=== PATIENT | female | born 1960 | race Caucasian/White ===

== ENCOUNTER 2019-12-20 19:46 | Emergency (ER) | payer SELFPAY ==
[2019-12-20 21:05] LABS: Absolute Lymphocytes (CBC) 2.1 K/uL (0.7-4.9); Basophils % 0.7 % (0-1.3); Hematocrit 40.5 % (36.0-45.0); Lymphocytes % 16.3 % (15.3-44.8); MPV 8.8 fL (7.6-11.3); RBC Red Blood Cell Count 4.54 M/uL (3.86-4.86)
--- NOTE | 2019-12-20 21:21 | RAD REPORT ---
EXAM DESCRIPTION: CTAbdomen Pelvis W Contrast - 12/20/2019 9:01 pm CLINICAL HISTORY: Abdominal pain. ABD PAIN COMPARISON: No comparisons TECHNIQUE: Biphasic CT imaging of the abdomen and pelvis was performed with 100 ml non-ionic IV cont rast. All CT scans are performed using dose optimization technique as appropriate and may include automated exposure control or mA/KV adjustment according to patient size. FINDINGS: The lung bases are clear. The liver demonstrates mild fatty infiltration. The spleen, pancreas, adrenal glands and kidneys are within normal limits. No bowel obstruction, free air, free fluid or abscess. The appendix is normal. There is moderate inf lammation surrounding the sigmoid colon are multiple diverticula are present compatible with acute di verticulitis. No abscess is seen. No evidence of significant lymphadenopathy. No suspicious bony findings. IMPRESSION: Mild to moderate acute sigmoid diverticulitis without abscess. If not recently performed, a followup colonoscopy would be suggested after appropriate therapy.
[2019-12-20 21:23] LABS: ALT/SGPT 32 U/L (12-78); AST/SGOT 13 U/L (15-37); Albumin 3.7 g/dL (3.4-5.0); Alkaline Phosphatase 73 U/L (45-117); BUN Blood Urea Nitrogen 18 mg/dL (7-18); Bicarbonate 25 mmol/L (21-32); Bilirubin Direct < 0.1 mg/dL (0-0.2); Bilirubin Total 0.3 mg/dL (0.2-1.0); Glucose Level 101 mg/dL (74-106); Lipase 97 U/L (73-393); Potassium 3.5 mmol/L (3.5-5.1); Protein, Total 7.6 g/dL (6.4-8.2); Sodium Level 140 mmol/L (136-145)
[2019-12-20] MEDS ORDERED: MORPHINE 4 MG/ML SYR ONE (21:33)
[2019-12-20] MEDS ORDERED: ONDANSETRON 4 MG/2 ML VIAL ONE (21:33)
[2019-12-20] MEDS ORDERED: NA CHLORIDE 0.9% 1,000 ML ONE (21:33)
[2019-12-20] MEDS ORDERED: HYDROMORPHONE HCL 0.5 MG/0.5 ML INJ ONE (22:53)
[2019-12-20] MEDS ORDERED: CIPROFLOXACIN 400mg IV 400 MG/200 ML BAG IV ONE (22:53)
[2019-12-20] MEDS ORDERED: METRONIDAZOLE 500mg IVPB 500 MG/100 ML BAG IV ONE (22:53)
--- NOTE | 2019-12-20 23:49 | ER ---
Nurse's Notes [facility] Name: Elizabeth Collins Age: 59 yrs Sex: Female : 1960 Arrival Date: 12/20/2019 Time: 19:49 Bed 16 Private MD: Diagnosis: Diverticulitis Presentation: 12/19 20:09 Chief complaint: Chief complaint: Patient states: Severe lower abdominal pain since ca1 yesterday, worse today. Reports nausea and diarrhea. Denies fever. 20:09 Coronavirus screen: Client denies travel out of the [place] in the last 14 days. diarrhea, ca1 nausea, Client presents with at least one sign or symptom that may indicate coronavirus-19. Standard/surgical mask placed on the client. Provider contacted for isolation considerations. The client denies any previous COVID testing. Ebola Screen: Patient negative for fever greater than or equal to 101.5 degrees Fahrenheit, and additional compatible Ebola Virus Disease symptoms Patient denies exposure to infectious person. Patient denies travel to an Ebola-affected area in the 21 days before illness onset. No symptoms or risks identified at this time. Initial Sepsis Screen: Does the patient meet any 2 criteria? No. Patient's initial sepsis screen is negative. Does the patient have a suspected source of infection? No. Patient's initial sepsis screen is negative. Risk Assessment: Do you want to hurt yourself or someone else? Patient reports no desire to harm self or others. Onset of symptoms was December 20, 2019. 20:09 Method Of Arrival: Ambulatory ca1 20:09 Acuity: BARBARA 2 ca1 Historical: - Allergies: 20:12 No Known Allergies; ca1 - Home Meds: 20:12 None [Active]; ca1 - PMHx: 20:12 None; ca1 - PSHx: 20:12 Tubal ligation; ca1 - Immunization history:: Adult Immunizations up to date, Flu vaccine is not up to date. - Social history:: Smoking status: Patient reports the use of cigarette tobacco products, smokes one pack cigarettes per day. Screenin/13 00:31 Abuse screen: Denies threats or abuse. Nutritional screening: No deficits noted. bb3 Tuberculosis screening: No symptoms or risk factors identified. Fall Risk None identified. Assessment: 12/19 21:40 General: Appears in no apparent distress. uncomfortable, well groomed, Behavior is bb3 calm, cooperative, appropriate for age, Smells of Reports Denies fever, fatigue. Pain: Pain currently is 10 out of 10 on a pain scale. Quality of pain is described as aching, sharp, Pain began 1 day ago. GI: No deficits noted. Reports lower abdominal pain, diarrhea, nausea. 22:30 Reassessment: Patient appears in no apparent distress at this time. Patient and/or bb3 family updated on plan of care and expected duration. Pain level reassessed. Patient is alert, oriented x 3, equal unlabored respirations, skin warm/dry/pink. Patient states feeling better. 23:15 Reassessment: Patient appears in no apparent distress at this time. Patient and/or bb3 family updated on plan of care and expected duration. Pain level reassessed. Patient is alert, oriented x 3, equal unlabored respirations, skin warm/dry/pink. Patient states feeling better. Patient states symptoms have improved. 12/20 00:28 Reassessment: Patient appears in no apparent distress at this time. Patient and/or bb3 family updated on plan of care and expected duration. Pain level reassessed. Patient is alert, oriented x 3, equal unlabored respirations, skin warm/dry/pink. Patient states symptoms have improved. 00:32 GI: GI: Abdomen is round non-distended, Abd is soft and non tender X 4 quads. bb3 Vital Signs: 12/19 20:09 BP 205 / 92; Pulse 82; Resp 15 S; Temp 98.4(TE); Pulse Ox 98% on R/A; Weight 86.18 kg ca1 (R); Height 5 ft. 4 in. (162.56 cm) (R); Pain 10/10; 21:39 BP 218 / 81; Pulse 101; Resp 19; Temp 98.5; Pulse Ox 96% ; Pain 10/10; bb3 22:16 Pulse Ox 9% ; bb3 22:30 BP 181 / 95; Pulse 96; Resp 18; Pulse Ox 95% ; bb3 23:10 BP 169 / 76; Pulse 96; Resp 17; Pulse Ox 95% ; Pain 9/10; bb3 23:10 BP 144 / 56; Pulse 96; Resp 17; Pulse Ox 94% ; Pain 4/10; bb3 23:24 BP 169 / 76; Pulse 98; Resp 17; Pulse Ox 95% ; Pain 0/10; bb3 20:09 Body Mass Index 32.61 (86.18 kg, 162.56 cm) ca1 ED Course: 19:49 Patient arrived in ED. am2 20:11 Triage completed. ca1 20:12 Arm band placed on right wrist. ca1 20:19 Lam Brand MD is Attending Physician. mh7 20:51 Inserted saline lock: 20 gauge in left antecubital area, using aseptic technique. Blood dh4 collected. 21:02 CT Abd/Pelvis - IV Contrast Only In Process Unspecified. EDMS 23:47 Zane Graff MD is Referral Physician. mh7 23:48 Geovani Ferrer MD is Referral Physician. mh7 12/20 00:31 Patient has correct armband on for positive identification. Bed in low position. Call bb3 light in reach. Side rails up X 1. 00:31 No provider procedures requiring assistance completed. IV discontinued, intact, bb3 bleeding controlled, No redness/swelling at site. Pressure dressing applied. Administered Medications: 12/19 21:30 Drug: NS 0.9% 1000 ml Route: IV; Rate: 1000 ml; Site: right antecubital; bb3 21:30 Drug: morphine 4 mg Route: IVP; Site: right antecubital; bb3 22:16 Follow up: Pulse Ox 9% ; Response: No adverse reaction; No change in condition; Pain is bb3 unchanged, physician notified 21:30 Drug: Zofran (Ondansetron) 4 mg Route: IVP; Site: right antecubital; bb3 22:16 Follow up: Response: No adverse reaction bb3 22:59 Drug: Dilaudid 0.5 mg Route: IVP; Site: right antecubital; bb3 23:24 Follow up: BP 169 / 76; Pulse 98 bpm; Resp 17 bpm; Pulse Ox 95% ; Pain 0/10 Adult; bb3 Response: No adverse reaction; Marked relief of symptoms; Pain is decreased 12/20 00:30 Follow up: Response: No adverse reaction; Marked relief of symptoms; Pain is decreased bb3 12/19 23:00 Drug: Cipro 400 mg Volume: 200 ml; Route: IVPB; Infused Over: 60 mins; Site: right bb3 antecubital; 23:25 Follow up: Response: No adverse reaction bb3 12/20 00:29 Follow up: IV Status: Completed infusion; IV Intake: 200ml bb3 12/19 23:15 Drug: Flagyl 500 mg Volume: 100 ml; Route: IVPB; Rate: 200 ml/hr; Infused Over: 30 bb3 mins; Site: right antecubital; 12/20 00:29 Follow up: IV Status: Completed infusion; IV Intake: 100ml bb3 00:29 Follow up: Response: No adverse reaction bb3 Intake: 00:29 IV: 100ml; Total: 100ml. bb3 00:29 IV: 200ml; Total: 300ml. bb3 Outcome: 12/19 23:48 Discharge ordered by . mh7 12/20 00:31 Discharged to home ambulatory. bb3 Condition: improved Discharge instructions given to patient, significant other, Instructed on discharge instructions, follow up and referral plans. medication usage, Demonstrated understanding of instructions, follow-up care, medications, Prescriptions given X x5 00:33 Patient left the ED. bb3 Signatures: Dispatcher [employer] EDMS Katie Reis 2 Diane Gibbs RN RN ca1 Aniya Stockton bb3 Nikolas Rodriguez 4 Lam Brand MD MD 7 Corrections: (The following items were deleted from the chart) 12/19 20:11 20:09 Chief complaint: ca1 ca1 20:14 20:09 Acuity: BARBARA 3 ca1 ca1
--- NOTE | 2019-12-20 23:49 | EDPHYS ---
Physician Documentation [facility] Name: Elizabeth Collins Age: 59 yrs Sex: Female : 1960 Arrival Date: 12/20/2019 Time: 19:49 Bed 16 Private MD: ED Physician Lam Brand HPI: 12/19 20:31 This 59 yrs old Female presents to ER via Ambulatory with complaints of mh7 Abdominal Pain, Diarrhea. 20:31 The patient presents to the emergency department with diarrhea, that is intermittent, mh7 abdominal pain. 20:32 The patient presents with abdominal pain in the lower abdomen. Onset: The mh7 symptoms/episode began/occurred yesterday. The symptoms do not radiate. Associated signs and symptoms: Pertinent positives: diarrhea, dysuria, Pertinent negatives: nausea and vomiting, anorexia, blood in stools, chest pain, constipation, fever, headache, hematuria, nausea, palpitations, shortness of breath, vaginal discharge, vomiting, vomiting blood. The symptoms are described as intermittent, vague, waxing/waning. Modifying factors: The symptoms are alleviated by nothing, the symptoms are aggravated by movement. Severity of pain: At its worst the pain was moderate today, in the emergency department the pain is unchanged. Historical: - Allergies: 20:12 No Known Allergies; ca1 - Home Meds: 20:12 None [Active]; ca1 - PMHx: 20:12 None; ca1 - PSHx: 20:12 Tubal ligation; ca1 - Immunization history:: Adult Immunizations up to date, Flu vaccine is not up to date. - Social history:: Smoking status: Patient reports the use of cigarette tobacco products, smokes one pack cigarettes per day. ROS: 20:32 Constitutional: Negative for fever, chills, and weight loss, Eyes: Negative for injury, mh7 pain, redness, and discharge, ENT: Negative for injury, pain, and discharge, Neck: Negative for injury, pain, and swelling, Cardiovascular: Negative for chest pain, palpitations, and edema, Respiratory: Negative for shortness of breath, cough, wheezing, and pleuritic chest pain, Back: Negative for injury and pain, MS/Extremity: Negative for injury and deformity, Skin: Negative for injury, rash, and discoloration, Neuro: Negative for headache, weakness, numbness, tingling, and seizure, Psych: Negative for depression, anxiety, suicide ideation, homicidal ideation, and hallucinations, Allergy/Immunology: Negative for hives, rash, and allergies, Endocrine: Negative for neck swelling, polydipsia, polyuria, polyphagia, and marked weight changes, Hematologic/Lymphatic: Negative for swollen nodes, abnormal bleeding, and unusual bruising. Exam: 20:32 Head/Face: Normocephalic, atraumatic. Eyes: Pupils equal round and reactive to light, mh7 extra-ocular motions intact. Lids and lashes normal. Conjunctiva and sclera are non-icteric and not injected. Cornea within normal limits. Periorbital areas with no swelling, redness, or edema. Neck: Trachea midline, no thyromegaly or masses palpated, and no cervical lymphadenopathy. Supple, full range of motion without nuchal rigidity, or vertebral point tenderness. No Meningismus. Chest/axilla: Normal chest wall appearance and motion. Nontender with no deformity. No lesions are appreciated. Cardiovascular: Regular rate and rhythm with a normal S1 and S2. No gallops, murmurs, or rubs. Normal PMI, no JVD. No pulse deficits. Respiratory: Lungs have equal breath sounds bilaterally, clear to auscultation and percussion. No rales, rhonchi or wheezes noted. No increased work of breathing, no retractions or nasal flaring. 20:32 Back: No spinal tenderness. No costovertebral tenderness. Full range of motion. Skin: Warm, dry with normal turgor. Normal color with no rashes, no lesions, and no evidence of cellulitis. MS/ Extremity: Pulses equal, no cyanosis. Neurovascular intact. Full, normal range of motion. Neuro: Awake and alert, GCS 15, oriented to person, place, time, and situation. Cranial nerves II-XII grossly intact. Motor strength 5/5 in all extremities. Sensory grossly intact. Cerebellar exam normal. Normal gait. Psych: Awake, alert, with orientation to person, place and time. Behavior, mood, and affect are within normal limits. 20:32 Constitutional: The patient appears in no acute distress, alert, awake, uncomfortable. 20:32 Abdomen/GI: Inspection: abdomen appears normal, Bowel sounds: normal, in all quadrants, Palpation: moderate abdominal tenderness, in the suprapubic area, right lower quadrant and left lower quadrant, no appreciated organomegaly, Rectal exam: the exam is deferred, because of patient request, Indicators: McBurney's point is not tender, Montemayor's sign is negative, Rovsing's sign is negative, Obturator sign is negative, Psoas sign is negative, Liver: no appreciated palpable abnormalities, Hernia: not appreciated. Vital Signs: 20:09 BP 205 / 92; Pulse 82; Resp 15 S; Temp 98.4(TE); Pulse Ox 98% on R/A; Weight 86.18 kg ca1 (R); Height 5 ft. 4 in. (162.56 cm) (R); Pain 10/10; 21:39 BP 218 / 81; Pulse 101; Resp 19; Temp 98.5; Pulse Ox 96% ; Pain 10/10; bb3 22:16 Pulse Ox 9% ; bb3 22:30 BP 181 / 95; Pulse 96; Resp 18; Pulse Ox 95% ; bb3 23:10 BP 169 / 76; Pulse 96; Resp 17; Pulse Ox 95% ; Pain 9/10; bb3 23:10 BP 144 / 56; Pulse 96; Resp 17; Pulse Ox 94% ; Pain 4/10; bb3 23:24 BP 169 / 76; Pulse 98; Resp 17; Pulse Ox 95% ; Pain 0/10; bb3 20:09 Body Mass Index 32.61 (86.18 kg, 162.56 cm) ca1 MDM: 20:29 Patient medically screened. mh7 23:46 Differential diagnosis: appendicitis, bowel obstruction, diverticulitis, non-specific mh7 abd pain, Pyelonephritis, Ureterolithiasis, urinary tract infection. Data reviewed: vital signs, nurses notes, lab test result(s), CBC, electrolytes, urinalysis, radiologic studies, CT scan. Data interpreted: Pulse oximetry: on room air is 95 %. Interpretation: normal. Counseling: I had a detailed discussion with the patient and/or guardian regarding: the historical points, exam findings, and any diagnostic results supporting the discharge/admit diagnosis, the presence of at least one elevated blood pressure reading (>120/80) during this emergency department visit, lab results, radiology results, the need for outpatient follow up, a admission liaison, to return to the emergency department if symptoms worsen or persist or if there are any questions or concerns that arise at home. Response to treatment: the patient's symptoms have markedly improved after treatment. 12/19 20:31 Order name: Basic Metabolic Panel; Complete Time: 22:31 7 12/19 20:31 Order name: CBC with Diff; Complete Time: 22:31 mh7 12/19 20:31 Order name: Hepatic Function; Complete Time: 22:31 7 12/19 20:31 Order name: Lipase; Complete Time: 22:31 7 12/19 20:31 Order name: CT Abd/Pelvis - IV Contrast Only; Complete Time: 22:31 7 12/19 21:16 Order name: CREATININE WHOLE BLOOD; Complete Time: 22:31 EDMS 12/19 20:31 Order name: IV Saline Lock; Complete Time: 21:35 7 12/19 20:31 Order name: Labs collected and sent; Complete Time: 21:35 7 12/19 20:31 Order name: EKG - Nurse/Tech; Complete Time: 21:34 mh7 Administered Medications: 21:30 Drug: NS 0.9% 1000 ml Route: IV; Rate: 1000 ml; Site: right antecubital; bb3 21:30 Drug: morphine 4 mg Route: IVP; Site: right antecubital; bb3 22:16 Follow up: Pulse Ox 9% ; Response: No adverse reaction; No change in condition; Pain is bb3 unchanged, physician notified 21:30 Drug: Zofran (Ondansetron) 4 mg Route: IVP; Site: right antecubital; bb3 22:16 Follow up: Response: No adverse reaction bb3 22:59 Drug: Dilaudid 0.5 mg Route: IVP; Site: right antecubital; bb3 23:24 Follow up: BP 169 / 76; Pulse 98 bpm; Resp 17 bpm; Pulse Ox 95% ; Pain 0/10 Adult; bb3 Response: No adverse reaction; Marked relief of symptoms; Pain is decreased 12/20 00:30 Follow up: Response: No adverse reaction; Marked relief of symptoms; Pain is decreased bb3 12/19 23:00 Drug: Cipro 400 mg Volume: 200 ml; Route: IVPB; Infused Over: 60 mins; Site: right bb3 antecubital; 23:25 Follow up: Response: No adverse reaction bb3 12/20 00:29 Follow up: IV Status: Completed infusion; IV Intake: 200ml bb3 12/19 23:15 Drug: Flagyl 500 mg Volume: 100 ml; Route: IVPB; Rate: 200 ml/hr; Infused Over: 30 bb3 mins; Site: right antecubital; 12/20 00:29 Follow up: IV Status: Completed infusion; IV Intake: 100ml bb3 00:29 Follow up: Response: No adverse reaction bb3 Disposition: 12/20/19 23:48 Discharged to Home. Impression: Diverticulitis. - Condition is Stable. - Discharge Instructions: Diverticulitis, [id number]. - Prescriptions for Zofran ODT 4 mg Oral tablet,disintegrating - place 1 tablet by TRANSLINGUAL route every 8 hours As needed; 8 tablet. Bentyl 20 mg Oral Tablet - take 1 tablet by ORAL route every 6 hours As needed; 20 tablet. Colace 100 mg Oral Capsule - take 1 tablet by ORAL route every 12 hours; 20 tablet. Flagyl 500 mg Oral Tablet - take 1 tablet by ORAL route every 8 hours for 10 days; 30 tablet. Tylenol- Codeine #3 300-30 mg Oral Tablet - take 2 tablets by ORAL route every 6 hours As needed; 20 tablet. Cipro 500 mg Oral Tablet - take 1 tablet by ORAL route every 12 hours for 10 days; 20 tablet. - Medication Reconciliation Form, Thank You Letter, Antibiotic Education, Prescription Opioid Use form. - Follow up: Zane Graff MD; When: 1 - 2 days; Reason: Worsening of condition, Recheck today's complaints. Follow up: Geovani Ferrer MD; When: 1 - 2 days; Reason: Worsening of condition, Further diagnostic work-up, Recheck today's complaints. - Problem is new. - Symptoms have improved. Signatures: Dispatcher [employer] EDMS Diane Gibbs RN RN ca1 Aniya Stockton bb3 Lam Brand MD MD mh7 Corrections: (The following items were deleted from the chart) 00:30 12/19 23:48 12/20/2019 23:48 Discharged to Home. Impression: Diverticulitis. Condition bb3 is Stable. Forms are Medication Reconciliation Form, Thank You Letter, Antibiotic Education, Prescription Opioid Use. Follow up: Zane Graff; When: 1 - 2 days; Reason: Worsening of condition, Recheck today's complaints. Follow up: Geovani Ferrer; When: 1 - 2 days; Reason: Worsening of condition, Further diagnostic work-up, Recheck today's complaints. Problem is new. Symptoms have improved. mh7 12/20 00:33 00:30 12/20/2019 23:48 Discharged to Home. Impression: Diverticulitis. Condition is bb3 Stable. Discharge Instructions: Diverticulitis, [id number]. Prescriptions for Zofran ODT 4 mg Oral tablet,disintegrating - place 1 tablet by TRANSLINGUAL route every 8 hours As needed; 8 tablet, Bentyl 20 mg Oral Tablet - take 1 tablet by ORAL route every 6 hours As needed; 20 tablet, Colace 100 mg Oral Capsule - take 1 tablet by ORAL route every 12 hours; 20 tablet, Flagyl 500 mg Oral Tablet - take 1 tablet by ORAL route every 8 hours for 10 days; 30 tablet, Tylenol-Codeine #3 300-30 mg Oral Tablet - take 2 tablets by ORAL route every 6 hours As needed; 20 tablet, Cipro 500 mg Oral Tablet - take 1 tablet by ORAL route every 12 hours for 10 days; 20 tablet. and Forms are Medication Reconciliation Form, Thank You Letter, Antibiotic Education, Prescription Opioid Use. Follow up: Zane Graff; When: 1 - 2 days; Reason: Worsening of condition, Recheck today's complaints. Follow up: Geovani Ferrer; When: 1 - 2 days; Reason: Worsening of condition, Further diagnostic work-up, Recheck today's complaints. Problem is new. Symptoms have improved. bb3
[2019-12-21 01:41] VITALS: TEMP 98.5
[2019-12-21 01:47] VITALS: BP 169/76; O2SAT 95
--- NOTE | 2019-12-22 07:15 | EKG ---
Test Date: 2019-12-20 Test Time: 21:27:16 Silk Screen Printer: [place] MEASUREMENT RESULTS: Intervals: Rate: 98 MS: 218 QRSD: 82 QT: 360 QTc: 459 [place]: P: 72 MS: 218 QRS: 71 T: 75 INTERPRETIVE STATEMENTS: Sinus rhythm with 1st degree AV block Nonspecific ST and T wave abnormality Abnormal ECG No previous ECG available for comparison Electronically Signed On 12-22-19 07:13:44 CDT by Keegan Mayfield
== END 2019-12-21 00:33 | disposition home or self-care (01) ==
LOC: ER 19:46
DX: K57.32 Diverticulitis of large intestine without perforation or abscess without bleeding (principal); F17.210 Nicotine dependence, cigarettes, uncomplicated
CPT/HCPCS: 36415; 74177; 80048; 80076; 82565; 83690; 85025; 93005; 96365; 96375; 99284; J0744; J1170; J2405; J7030; Q9967

== ENCOUNTER 2020-04-07 13:28 | Emergency (ER) | payer SELFPAY ==
--- NOTE | 2020-04-07 18:15 | ER ---
Nurse's Notes [facility] Name: Elizabeth Collins Age: 60 yrs Sex: Female : 1960 Arrival Date: 04/07/2020 Time: 13:31 Bed 17 Private MD: Diagnosis: Cutaneous abscess of left lower limb Presentation: 04/07 13:53 Chief complaint: Patient states: Abscess to left thigh area for 1 week. On Keflex for 2 ll1 full days. States the site has gotten slightly smaller, but started draining some blood today. No fever. Coronavirus screen: Client denies travel out of the [place] in the last 14 days. At this time, the client does not indicate any symptoms associated with coronavirus-19. Ebola Screen: Patient denies travel to an Ebola-affected area in the 21 days before illness onset. Initial Sepsis Screen: Does the patient meet any 2 criteria? No. Patient's initial sepsis screen is negative. Does the patient have a suspected source of infection? Yes: Skin breakdown/wound. Risk Assessment: Do you want to hurt yourself or someone else? Patient reports no desire to harm self or others. Onset of symptoms was March 31, 2020. 13:53 Method Of Arrival: Ambulatory ll1 13:53 Acuity: BARBARA 3 ll1 Historical: - Allergies: 13:57 No Known Allergies; ll1 - PMHx: 13:57 None; ll1 - PSHx: 13:57 Tubal ligation; ll1 - Immunization history:: Flu vaccine is not up to date. - Social history:: Smoking status: Patient reports the use of cigarette tobacco products, smokes one pack cigarettes per day. Screenin:08 Abuse screen: Denies threats or abuse. Nutritional screening: No deficits noted. vg1 Tuberculosis screening: No symptoms or risk factors identified. Fall Risk No fall in past 12 months (0 pts). No secondary diagnosis (0 pts). No IV (0 pts). Ambulatory Aid- None/Bed Rest/Nurse Assist (0 pts). Gait- Normal/Bed Rest/Wheelchair (0 pts) Mental Status- Oriented to own ability (0 pts). Total Gil Fall Scale indicates No Risk (0-24 pts). Assessment: 17:00 General: Appears in no apparent distress. uncomfortable, Behavior is calm, cooperative. vg1 Pain: Complains of pain in Inner Left thigh Pain currently is 10 out of 10 on a pain scale. Pain began about a week. Neuro: Level of Consciousness is awake, alert, obeys commands, Oriented to person, place, time, situation. Cardiovascular: Patient's skin is warm and dry. Respiratory: Airway is patent Respiratory effort is even, unlabored, Respiratory pattern is regular, symmetrical. GI: No signs and/or symptoms were reported involving the gastrointestinal system. : No signs and/or symptoms were reported regarding the genitourinary system. EENT: No signs and/or symptoms were reported regarding the EENT system. Derm: Skin is red, Skin temperature is warm Abscess located on Inner Left thigh is dime sized. Musculoskeletal: Circulation, motion, and sensation intact. Vital Signs: 13:53 BP 203 / 97; Pulse 88; Resp 17; Temp 98.3; Pulse Ox 98% ; Weight 86.18 kg; Height 5 ft. ll1 4 in. (162.56 cm); Pain 10/10; 17:00 BP 180 / 73; Pulse 70; Resp 16; Pulse Ox 100% on R/A; vg1 18:00 BP 180 / 90; Pulse 72; Resp 14; Pulse Ox 100% on R/A; vg1 13:53 Body Mass Index 32.61 (86.18 kg, 162.56 cm) ll1 ED Course: 13:31 Patient arrived in ED. mr 13:55 Triage completed. ll1 13:57 Arm band placed on. ll1 16:53 Alycia Lizarraga RN is Primary Nurse. vg1 16:59 [facility] kb 16:59 Mohamud Sanchez MD is Attending Physician. kb 17:08 Patient has correct armband on for positive identification. Placed in gown. Bed in low vg1 position. Call light in reach. 18:29 No provider procedures requiring assistance completed. Patient did not have IV access vg1 during this emergency room visit. Administered Medications: 18:24 Drug: [place] 10 mg-325 mg 1 tabs {Note: rass0.} Route: PO; vg1 18:28 Follow up: Response: Medication administered at discharge. vg1 18:24 Drug: Bactrim (160 mg-800 mg (DS) 1 tablet Route: PO; vg1 18:28 Follow up: Response: Medication administered at discharge. vg1 Outcome: 18:15 Discharge ordered by . sancho 18:29 Discharged to home ambulatory. vg1 18:29 Condition: stable 18:29 Discharge instructions given to patient, Instructed on discharge instructions, follow up and referral plans. medication usage, Demonstrated understanding of instructions, follow-up care, medications, Prescriptions given X 1. 18:29 Patient left the ED. vg1 Signatures: Bety Seo, ANALY PHILIPPE-Lenore Olivares Victoria, RN RN vg1 Juan Borrero RN RN ll1
--- NOTE | 2020-04-07 18:15 | EDPHYS ---
Physician Documentation [facility] Name: Elizabeth Collins Age: 60 yrs Sex: Female : 1960 Arrival Date: 04/07/2020 Time: 13:31 Bed 17 Private MD: ED Physician Mohamud Sanchez HPI: 04/07 20:54 This 60 yrs old Female presents to ER via Ambulatory with complaints of Wound kb Infection. 20:54 The patient presents with an abscess of the medial aspect of left thigh. Description: kb draining, erythematous, warm. Onset: The symptoms/episode began/occurred 2 day(s) ago. Possible cause(s): insect sting. Associated signs and symptoms: Pertinent positives: drainage, erythema, swelling. Modifying factors: the symptoms are alleviated by nothing, the symptoms are aggravated by pressure, touching. Severity of symptoms: At their worst the symptoms were moderate, in the emergency department the symptoms are unchanged. The patient has not experienced similar symptoms in the past. The patient has been recently seen by a physician:. Historical: - Allergies: 13:57 No Known Allergies; ll1 - PMHx: 13:57 None; ll1 - PSHx: 13:57 Tubal ligation; ll1 - Immunization history:: Flu vaccine is not up to date. - Social history:: Smoking status: Patient reports the use of cigarette tobacco products, smokes one pack cigarettes per day. ROS: 20:53 Constitutional: Negative for fever, chills, and weight loss, Cardiovascular: Negative kb for chest pain, palpitations, and edema, Respiratory: Negative for shortness of breath, cough, wheezing, and pleuritic chest pain, Abdomen/GI: Negative for abdominal pain, nausea, vomiting, diarrhea, and constipation, MS/Extremity: Negative for injury and deformity, Neuro: Negative for headache, weakness, numbness, tingling, and seizure. 20:53 Skin: Positive for abscess, of the medial aspect of left thigh. Exam: 20:53 Constitutional: This is a well developed, well nourished patient who is awake, alert, kb and in no acute distress. Head/Face: Normocephalic, atraumatic. Chest/axilla: Normal chest wall appearance and motion. Nontender with no deformity. No lesions are appreciated. Cardiovascular: Regular rate and rhythm with a normal S1 and S2. No gallops, murmurs, or rubs. Normal PMI, no JVD. No pulse deficits. Respiratory: Lungs have equal breath sounds bilaterally, clear to auscultation and percussion. No rales, rhonchi or wheezes noted. No increased work of breathing, no retractions or nasal flaring. Abdomen/GI: Soft, non-tender, with normal bowel sounds. No distension or tympany. No guarding or rebound. No evidence of tenderness throughout. MS/ Extremity: Pulses equal, no cyanosis. Neurovascular intact. Full, normal range of motion. Neuro: Awake and alert, GCS 15, oriented to person, place, time, and situation. Cranial nerves II-XII grossly intact. Motor strength 5/5 in all extremities. Sensory grossly intact. Cerebellar exam normal. Normal gait. 20:53 Skin: abscess, that is small, that is moderate sized, of the medial aspect of left thigh, with drainage, with induration, with surrounding cellulitis, that is mild. Vital Signs: 13:53 BP 203 / 97; Pulse 88; Resp 17; Temp 98.3; Pulse Ox 98% ; Weight 86.18 kg; Height 5 ft. ll1 4 in. (162.56 cm); Pain 10/10; 17:00 BP 180 / 73; Pulse 70; Resp 16; Pulse Ox 100% on R/A; vg1 18:00 BP 180 / 90; Pulse 72; Resp 14; Pulse Ox 100% on R/A; vg1 13:53 Body Mass Index 32.61 (86.18 kg, 162.56 cm) ll1 MDM: 16:59 Patient medically screened. kb 20:53 Data reviewed: vital signs, nurses notes. Data interpreted: Pulse oximetry: on room air kb is 100 %. Interpretation: normal. Counseling: I had a detailed discussion with the patient and/or guardian regarding: the historical points, exam findings, and any diagnostic results supporting the discharge/admit diagnosis, the need for outpatient follow up, a family practitioner, to return to the emergency department if symptoms worsen or persist or if there are any questions or concerns that arise at home. Administered Medications: 18:24 Drug: [place] 10 mg-325 mg 1 tabs {Note: rass0.} Route: PO; vg1 18:28 Follow up: Response: Medication administered at discharge. vg1 18:24 Drug: Bactrim (160 mg-800 mg (DS) 1 tablet Route: PO; vg1 18:28 Follow up: Response: Medication administered at discharge. vg1 Disposition: 04/07/20 18:15 Discharged to Home. Impression: Cutaneous abscess of left lower limb. - Condition is Stable. - Discharge Instructions: Skin Abscess, [id number]. - Prescriptions for Bactrim DS 800- 160 mg Oral Tablet - take 1 tablet by ORAL route every 12 hours for 10 days; 20 tablet. - Medication Reconciliation Form, Thank You Letter, Antibiotic Education, Prescription Opioid Use form. - Follow up: Emergency Department; When: As needed; Reason: Worsening of condition. Follow up: Private Physician; When: 2 - 3 days; Reason: Recheck today's complaints, Continuance of care, Re-evaluation by your physician. Addendum: 04/09/2020 20:01 Co-signature as Attending Physician, Mohamud Sanchez MD I agree with the assessment and k dr plan of care. Signatures: Bety Seo, HAIR MACHINE OPERATOR-C HAIR MACHINE OPERATOR-Ckb Mohamud Sanchez MD MD [facility] Alycai Lizarraga RN RN vg1 Juan Borrero RN RN 1 Corrections: (The following items were deleted from the chart) 04/07 18:29 18:15 04/07/2020 18:15 Discharged to Home. Impression: Cutaneous abscess of left lower vg1 limb. Condition is Stable. Forms are Medication Reconciliation Form, Thank You Letter, Antibiotic Education, Prescription Opioid Use. Follow up: Emergency Department; When: As needed; Reason: Worsening of condition. Follow up: Private Physician; When: 2 - 3 days; Reason: Recheck today's complaints, Continuance of care, Re-evaluation by your physician. kb
[2020-04-07] MEDS ORDERED: SMZ./TMP. 800/160 MG TABLET ONE (18:36)
[2020-04-07] MEDS ORDERED: HYDROCODONE/APAP 10/325 TAB ONE (18:36)
[2020-04-07 18:43] VITALS: TEMP 98.3
[2020-04-07 18:44] VITALS: O2SAT 100
[2020-04-07 18:45] VITALS: BP 180/90
== END 2020-04-07 18:29 | disposition home or self-care (01) ==
LOC: ER 13:28
DX: L02.416 Cutaneous abscess of left lower limb (principal); F17.210 Nicotine dependence, cigarettes, uncomplicated
CPT/HCPCS: 99283

== ENCOUNTER 2020-07-08 18:46 | Emergency (ER) | payer SELFPAY ==
[2020-07-08 19:54] LABS: Absolute Lymphocytes (CBC) 2.4 K/uL (0.7-4.9); Basophils % 0.4 % (0-1.3); Lymphocytes % 19.9 % (15.3-44.8); MPV 8.7 fL (7.6-11.3); RBC Red Blood Cell Count 4.62 M/uL (3.86-4.86)
[2020-07-08] MEDS ORDERED: ONDANSETRON 4 MG/2 ML VIAL ONE (19:54)
[2020-07-08] MEDS ORDERED: MORPHINE 4 MG/ML SYR ONE (19:54)
[2020-07-08] MEDS ORDERED: NA CHLORIDE 0.9% 1,000 ML ONE (19:54)
[2020-07-08 20:11] LABS: ALT/SGPT 21 U/L (12-78); AST/SGOT 6 U/L (15-37); Albumin 3.8 g/dL (3.4-5.0); Alkaline Phosphatase 74 U/L (45-117); BUN Blood Urea Nitrogen 14 mg/dL (7-18); Bicarbonate 27 mmol/L (21-32); Bilirubin Direct < 0.1 mg/dL (0-0.2); Bilirubin Total 0.4 mg/dL (0.2-1.0); Glucose Level 91 mg/dL (74-106); Lipase 85 U/L (73-393); Potassium 4.2 mmol/L (3.5-5.1); Protein, Total 7.9 g/dL (6.4-8.2); Sodium Level 141 mmol/L (136-145)
--- NOTE | 2020-07-08 20:22 | RAD REPORT ---
EXAM DESCRIPTION: CT - Abdomen Pelvis W Contrast - 07/08/2020 7:57 pm CLINICAL HISTORY: diarrhea;Abd pain COMPARISON: Abdomen Pelvis W Contrast dated 12/20/2019 TECHNIQUE: Biphasic, helical CT imaging of the abdomen and pelvis was performed following 100 ml non -ionic IV contrast. No oral contrast. All CT scans are performed using dose optimization technique as appropriate and may include automated exposure control or mA/KV adjustment according to patient size. FINDINGS: No suspicious findings in the lung bases. Diffuse fatty infiltration seen in the liver. Focal liver lesion. Portal vein abnormality. Pancreas a nd spleen show no suspicious findings. Granulomatous calcifications are present in the spleen. Gallbl adder and biliary tree are also without suspicious finding. Symmetric renal function is seen with no hydronephrosis or suspicious renal mass. No pyelonephritis o r acute parenchymal process. No bladder abnormalities. No adrenal abnormalities. No uterine or ovaria n abnormality seen. No stomach or small bowel abnormality. Retrocecal appendix is unremarkable. Large stool volume fills but does not dilate the colon from cecum through splenic flexure. Patient has sigmoid diverticulosis. There is wall thickening and edema along a 7 centimeter segment of the distal sigmoid colon. Minimal fluid and mild stranding changes are present in the adjacent fat. No abscess or extravasation bowel content. No free air or pneumatosis. No hernia, mass or bulky lymphadenopathy. No suspicious bony findings. IMPRESSION: Mild to moderate sigmoid diverticulitis change. No abscess, free air or other surgically emergent finding. Severity is similar to the December 2019 examination. Additional nonacute findings detailed in the body of the report, similar to comparison.
[2020-07-08] MEDS ORDERED: HYDROMORPHONE HCL 1 MG/ML INJ ONE (21:04)
[2020-07-08] MEDS ORDERED: METRONIDAZOLE 500mg IVPB 500 MG/100 ML BAG IV ONE (21:04)
[2020-07-08] MEDS ORDERED: CEFTRIAXONE/SWI 1gm 1 GM/10 ML SYR ONE (21:04)
--- NOTE | 2020-07-08 21:58 | EDPHYS ---
Physician Documentation [facility] Name: Elizabeth Collins Age: 60 yrs Sex: Female : 1960 Arrival Date: 07/08/2020 Time: 18:47 Bed 8 Private MD: ED Physician Lam Brand HPI: 07/08 19:42 This 60 yrs old Female presents to ER via Ambulatory with complaints of mh7 Diarrhea, Abdominal Pain. 19:42 The patient presents with abdominal pain in the lower abdomen. Onset: The mh7 symptoms/episode began/occurred 2 day(s) ago. The symptoms do not radiate. Associated signs and symptoms: Pertinent positives: diarrhea, Pertinent negatives: nausea and vomiting, anorexia, blood in stools, chest pain, constipation, dysuria, fever, headache, hematuria, nausea, palpitations, shortness of breath, vaginal discharge, vomiting, vomiting blood. The symptoms are described as intermittent, vague, waxing/waning. Modifying factors: The symptoms are alleviated by nothing, the symptoms are aggravated by nothing. Severity of pain: At its worst the pain was moderate last night, in the emergency department the pain is unchanged. Historical: - Allergies: 18:55 No Known Allergies; ss - Home Meds: 18:55 None [Active]; ss - PMHx: 18:55 None; ss - PSHx: 18:55 Tubal ligation; ss - Immunization history:: Adult Immunizations up to date. - Social history:: Smoking status: Patient reports the use of cigarette tobacco products, smokes one pack cigarettes per day. ROS: 19:42 Constitutional: Negative for fever, chills, and weight loss, Eyes: Negative for injury, mh7 pain, redness, and discharge, ENT: Negative for injury, pain, and discharge, Neck: Negative for injury, pain, and swelling, Cardiovascular: Negative for chest pain, palpitations, and edema, Respiratory: Negative for shortness of breath, cough, wheezing, and pleuritic chest pain, Back: Negative for injury and pain, : Negative for injury, bleeding, discharge, and swelling, MS/Extremity: Negative for injury and deformity, Skin: Negative for injury, rash, and discoloration, Neuro: Negative for headache, weakness, numbness, tingling, and seizure, Psych: Negative for depression, anxiety, suicide ideation, homicidal ideation, and hallucinations, Allergy/Immunology: Negative for hives, rash, and allergies, Endocrine: Negative for neck swelling, polydipsia, polyuria, polyphagia, and marked weight changes, Hematologic/Lymphatic: Negative for swollen nodes, abnormal bleeding, and unusual bruising. Exam: 19:42 Constitutional: This is a well developed, well nourished patient who is awake, alert, mh7 and in no acute distress. Head/Face: Normocephalic, atraumatic. Eyes: Pupils equal round and reactive to light, extra-ocular motions intact. Lids and lashes normal. Conjunctiva and sclera are non-icteric and not injected. Cornea within normal limits. Periorbital areas with no swelling, redness, or edema. Neck: Trachea midline, no thyromegaly or masses palpated, and no cervical lymphadenopathy. Supple, full range of motion without nuchal rigidity, or vertebral point tenderness. No Meningismus. Chest/axilla: Normal chest wall appearance and motion. Nontender with no deformity. No lesions are appreciated. Cardiovascular: Regular rate and rhythm with a normal S1 and S2. No gallops, murmurs, or rubs. Normal PMI, no JVD. No pulse deficits. Respiratory: Lungs have equal breath sounds bilaterally, clear to auscultation and percussion. No rales, rhonchi or wheezes noted. No increased work of breathing, no retractions or nasal flaring. 19:42 Back: No spinal tenderness. No costovertebral tenderness. Full range of motion. Skin: Warm, dry with normal turgor. Normal color with no rashes, no lesions, and no evidence of cellulitis. MS/ Extremity: Pulses equal, no cyanosis. Neurovascular intact. Full, normal range of motion. Neuro: Awake and alert, GCS 15, oriented to person, place, time, and situation. Cranial nerves II-XII grossly intact. Motor strength 5/5 in all extremities. Sensory grossly intact. Cerebellar exam normal. Normal gait. Psych: Awake, alert, with orientation to person, place and time. Behavior, mood, and affect are within normal limits. 19:42 Abdomen/GI: Inspection: obese Bowel sounds: normal, in all quadrants, Palpation: moderate abdominal tenderness, in the suprapubic area, right lower quadrant and left lower quadrant, mass, is not appreciated, rebound tenderness, is not appreciated, voluntary guarding, is not appreciated, involuntary guarding, is not appreciated, no appreciated organomegaly, Rectal exam: the exam is deferred, because of patient request, Indicators: McBurney's point is not tender, Montemayor's sign is negative, Rovsing's sign is negative, Obturator sign is negative, Psoas sign is negative, Liver: no appreciated palpable abnormalities, Hernia: not appreciated. Vital Signs: 18:55 BP 167 / 87; Pulse 103; Resp 20; Temp 98.8(TE); Pulse Ox 99% on R/A; Weight 86.18 kg; ss Height 5 ft. 4 in. (162.56 cm); Pain 10/10; 20:47 BP 180 / 85; Pulse 93; Resp 18 S; Pulse Ox 99% on R/A; ca1 22:00 BP 187 / 78; Pulse 88; Resp 18; Temp 98.7; Pulse Ox 98% ; ea 18:55 Body Mass Index 32.61 (86.18 kg, 162.56 cm) ss MDM: 21:54 Differential diagnosis: bowel obstruction, diverticulitis, non-specific abd pain, mh7 Pyelonephritis, Ureterolithiasis, urinary tract infection. Data reviewed: vital signs, nurses notes, old medical records, lab test result(s), CBC, electrolytes, urinalysis, EKG, radiologic studies, CT scan. Data interpreted: Pulse oximetry: on room air is 99 %. Interpretation: normal. Counseling: I had a detailed discussion with the patient and/or guardian regarding: the historical points, exam findings, and any diagnostic results supporting the discharge/admit diagnosis, the presence of at least one elevated blood pressure reading (>120/80) during this emergency department visit, lab results, radiology results, the need for outpatient follow up, a gear changer, to return to the emergency department if symptoms worsen or persist or if there are any questions or concerns that arise at home. Response to treatment: the patient's symptoms have markedly improved after treatment, patient is well hydrated. Tolerating oral intake without difficulty. 21:57 Patient medically screened. [facility] 07/08 19:30 Order name: Basic Metabolic Panel; Complete Time: 20:28 [facility] 07/08 19:30 Order name: CBC with Diff; Complete Time: 19:59 [facility] 07/08 19:30 Order name: Hepatic Function; Complete Time: 20:28 [facility] 07/08 19:30 Order name: Lipase; Complete Time: 20:28 [facility] 07/08 19:30 Order name: CT Abd/Pelvis - IV Contrast Only; Complete Time: 20:28 [facility] 07/08 22:05 Order name: Urine Dipstick-Ancillary [facility] 07/08 19:30 Order name: IV Saline Lock; Complete Time: 19:49 [facility] 07/08 19:30 Order name: Labs collected and sent; Complete Time: 19:49 [facility] 07/08 19:30 Order name: Urine Dipstick-Ancillary (obtain specimen); Complete Time: 22:05 [facility] 07/08 19:30 Order name: EKG - Nurse/Tech; Complete Time: 19:49 7 Administered Medications: 19:48 Drug: NS 0.9% 1000 ml Route: IV; Rate: 1000 ml; Site: right antecubital; ea 19:48 Drug: morphine 4 mg Route: IVP; Site: right antecubital; ea 20:40 Follow up: Response: No adverse reaction ea 19:48 Drug: Zofran (Ondansetron) 4 mg Route: IVP; Site: right antecubital; ea 20:40 Follow up: Response: No adverse reaction ea 20:50 Drug: Rocephin (cefTRIAXone) 1 grams Route: IV; Rate: per protocol; Site: right ea antecubital; 21:30 Follow up: Response: No adverse reaction; IV Status: Completed infusion ea 20:55 Drug: Flagyl (metroNIDAZOLE) 500 mg Volume: 100 ml; Route: IVPB; Rate: 200 ml/hr; ea Infused Over: 30 mins; Site: right antecubital; 21:50 Follow up: Response: No adverse reaction; IV Status: Completed infusion ea 20:55 Drug: Dilaudid (HYDROmorphone) 1 mg Route: IVP; Site: right antecubital; ea 21:57 Follow up: Response: No adverse reaction ea Disposition: 07/08/20 21:57 Discharged to Home. Impression: Acute Sigmoid Diverticulitis. - Condition is Stable. - Discharge Instructions: Diverticulitis, [id number]. - Prescriptions for Bentyl 20 mg Oral Tablet - take 1 tablet by ORAL route every 6 hours As needed; 20 tablet. Flagyl 500 mg Oral Tablet - take 1 tablet by ORAL route every 8 hours for 10 days; 30 tablet. Tylenol- Codeine #3 300-30 mg Oral Tablet - take 2 tablets by ORAL route every 6 hours As needed; 20 tablet. Cipro 500 mg Oral Tablet - take 1 tablet by ORAL route every 12 hours for 10 days; 20 tablet. promethazine 25 mg Oral Tablet - take 1 tablet by ORAL route every 6 hours As needed; 8 tablet. - Medication Reconciliation Form, Thank You Letter, Antibiotic Education, Prescription Opioid Use form. - Follow up: Private Physician; When: 1 - 2 days; Reason: Worsening of condition, Recheck today's complaints, Continuance of care, Re-evaluation by your physician. Follow up: Geovani Ferrer MD; When: 1 - 2 days; Reason: Worsening of condition, Recheck today's complaints. - Problem is an acute exacerbation. - Symptoms have improved. Signatures: Dispatcher [employer] EDRI Joceline Greenwood RN RN ss Antunez, Elena, RN RN ea Holmes, Maurice, MD MD mh7 Corrections: (The following items were deleted from the chart) 22:10 21:57 07/08/2020 21:57 Discharged to Home. Impression: Acute Sigmoid Diverticulitis. ea Condition is Stable. Forms are Medication Reconciliation Form, Thank You Letter, Antibiotic Education, Prescription Opioid Use. Follow up: Private Physician; When: 1 - 2 days; Reason: Worsening of condition, Recheck today's complaints, Continuance of care, Re-evaluation by your physician. Follow up: Geovani Ferrer; When: 1 - 2 days; Reason: Worsening of condition, Recheck today's complaints. Problem is an acute exacerbation. Symptoms have improved. mh7
--- NOTE | 2020-07-08 21:58 | ER ---
Nurse's Notes [facility] Name: Elizabeth Collins Age: 60 yrs Sex: Female : 1960 Arrival Date: 07/08/2020 Time: 18:47 Bed 8 Private MD: Diagnosis: Acute Sigmoid Diverticulitis Presentation: 07/08 18:53 Chief complaint: Patient states: lower abd pain and diarrhea that began . HX of ss diverticulitis. Coronavirus screen: Client denies travel out of the [place] in the last 14 days. Ebola Screen: Patient denies exposure to infectious person. Patient denies travel to an Ebola-affected area in the 21 days before illness onset. Initial Sepsis Screen: Does the patient meet any 2 criteria? No. Patient's initial sepsis screen is negative. Does the patient have a suspected source of infection? No. Patient's initial sepsis screen is negative. Risk Assessment: Do you want to hurt yourself or someone else? Patient reports no desire to harm self or others. Onset of symptoms was July 06, 2020. 18:53 Method Of Arrival: Ambulatory ss 18:53 Acuity: BARBARA 3 ss Historical: - Allergies: 18:55 No Known Allergies; ss - Home Meds: 18:55 None [Active]; ss - PMHx: 18:55 None; ss - PSHx: 18:55 Tubal ligation; ss - Immunization history:: Adult Immunizations up to date. - Social history:: Smoking status: Patient reports the use of cigarette tobacco products, smokes one pack cigarettes per day. Screenin:22 Abuse screen: Denies threats or abuse. Nutritional screening: No deficits noted. ea Tuberculosis screening: No symptoms or risk factors identified. Fall Risk None identified. Assessment: 19:40 General: Appears in no apparent distress. Behavior is calm, cooperative, appropriate ea for age. Pain: Complains of pain in left lower quadrant and right lower quadrant and suprapubic area. Neuro: Level of Consciousness is awake, alert, obeys commands, Oriented to person, place, time. Cardiovascular: Patient's skin is warm and dry. Respiratory: Airway is patent Respiratory effort is even, unlabored, Respiratory pattern is regular, symmetrical. GI: Abdomen is non-distended. Derm: Skin is pink, warm \T\ dry. 20:40 Reassessment: Patient appears in no apparent distress at this time. Patient and/or ca1 family updated on plan of care and expected duration. Pain level reassessed. Patient is alert, oriented x 3, equal unlabored respirations, skin warm/dry/pink. 21:57 Reassessment: Patient and/or family updated on plan of care and expected duration. Pain ea level reassessed. Patient is alert, oriented x 3, equal unlabored respirations, skin warm/dry/pink. Patient states feeling better. Patient states symptoms have improved. 22:08 Reassessment: Patient and/or family updated on plan of care and expected duration. Pain ea level reassessed. Patient is alert, oriented x 3, equal unlabored respirations, skin warm/dry/pink. Discharge instruction given to patient, verbalized the understanding of instruction. Pt left ED ambulatory accompanied by family. Pt tolerating well. Vital Signs: 18:55 BP 167 / 87; Pulse 103; Resp 20; Temp 98.8(TE); Pulse Ox 99% on R/A; Weight 86.18 kg; ss Height 5 ft. 4 in. (162.56 cm); Pain 10/10; 20:47 BP 180 / 85; Pulse 93; Resp 18 S; Pulse Ox 99% on R/A; ca1 22:00 BP 187 / 78; Pulse 88; Resp 18; Temp 98.7; Pulse Ox 98% ; ea 18:55 Body Mass Index 32.61 (86.18 kg, 162.56 cm) ED Course: 18:47 Patient arrived in ED. am2 18:54 Triage completed. ss 18:55 Arm band placed on left wrist. ss 19:20 Diane Gibbs, YA is Primary Nurse. ca1 19:20 Lam Brand MD is Attending Physician. 7 19:22 Patient has correct armband on for positive identification. Bed in low position. Call ea light in reach. Side rails up X2. 19:40 Inserted saline lock: 20 gauge in right antecubital area, using aseptic technique. ea Blood collected. 19:58 CT Abd/Pelvis - IV Contrast Only In Process Unspecified. EDMS 20:25 Eliza Valdivia, RN is Primary Nurse. iw 20:32 Madelin Aviles, YA is Primary Nurse. ea 21:56 Geovani Ferrer MD is Referral Physician. mh7 21:57 No provider procedures requiring assistance completed. ea 22:07 IV discontinued, intact, bleeding controlled, No redness/swelling at site. Pressure ea dressing applied. Administered Medications: 19:48 Drug: NS 0.9% 1000 ml Route: IV; Rate: 1000 ml; Site: right antecubital; ea 19:48 Drug: morphine 4 mg Route: IVP; Site: right antecubital; ea 20:40 Follow up: Response: No adverse reaction ea 19:48 Drug: Zofran (Ondansetron) 4 mg Route: IVP; Site: right antecubital; ea 20:40 Follow up: Response: No adverse reaction ea 20:50 Drug: Rocephin (cefTRIAXone) 1 grams Route: IV; Rate: per protocol; Site: right ea antecubital; 21:30 Follow up: Response: No adverse reaction; IV Status: Completed infusion ea 20:55 Drug: Flagyl (metroNIDAZOLE) 500 mg Volume: 100 ml; Route: IVPB; Rate: 200 ml/hr; ea Infused Over: 30 mins; Site: right antecubital; 21:50 Follow up: Response: No adverse reaction; IV Status: Completed infusion ea 20:55 Drug: Dilaudid (HYDROmorphone) 1 mg Route: IVP; Site: right antecubital; ea 21:57 Follow up: Response: No adverse reaction ea Outcome: 21:57 Discharge ordered by . 7 22:09 Discharged to home ambulatory, with family. ea 22:09 Condition: stable 22:09 Discharge instructions given to patient, Instructed on discharge instructions, follow up and referral plans. medication usage, Demonstrated understanding of instructions, follow-up care, medications. 22:10 Patient left the ED. ea Signatures: Dispatcher [employer] EDMS Eliza Valdivia RN RN iw Smirch, Shelby, RN RN ss Moreno, Amanda am2 Antunez, Elena, RN RN ea Acob, Cheryl, RN RN ca1 Holmes, Maurice, MD MD [facility]
[2020-07-08 22:05] LABS: Urine Blood Trace-intact (Negative); Urine Glucose Negative (Negative); Urine Protein Negative (Negative); Urine pH 5.5 (5.0-7.0)
[2020-07-08 22:21] VITALS: BP 187/78; TEMP 98.7; O2SAT 98
--- NOTE | 2020-07-10 09:21 | EKG ---
Test Date: 2020-07-08 Test Time: 19:43:08 Animal Care Provider: [facility] MEASUREMENT RESULTS: Intervals: Rate: 92 OR: 190 QRSD: 80 QT: 372 QTc: 460 [facility]: P: 57 OR: 190 QRS: 68 T: 80 INTERPRETIVE STATEMENTS: Normal sinus rhythm Prolonged QT Abnormal ECG Compared to ECG 12/20/2019 21:27:16 Prolonged QT interval now present First degree AV block no longer present ST (T wave) deviation no longer present Electronically Signed On 07-10-20 09:17:29 CDT by Keegan Mayfield
== END 2020-07-08 22:10 | disposition home or self-care (01) ==
LOC: ER 18:46
DX: K57.32 Diverticulitis of large intestine without perforation or abscess without bleeding (principal); F17.210 Nicotine dependence, cigarettes, uncomplicated
CPT/HCPCS: 36415; 74177; 80048; 80076; 81003; 82565; 83690; 85025; 93005; 96365; 96375; 99284; J0696; J1170; J2405; J7030; Q9967

== ENCOUNTER 2021-08-18 19:30 | Emergency (ER) | payer BC ==
[2021-08-18] MEDS ORDERED: MORPHINE 4 MG/ML SYR ONE (21:01)
[2021-08-18] MEDS ORDERED: ONDANSETRON 4 MG/2 ML VIAL ONE (21:01)
[2021-08-18] MEDS ORDERED: NA CHLORIDE 0.9% 1,000 ML ONE (21:01)
[2021-08-18 21:15] LABS: Absolute Lymphocytes (CBC) 2.2 K/uL (0.7-4.9); Hematocrit 42.9 % (36.0-45.0); Lymphocytes % 17.8 % (15.3-44.8); MPV 8.6 fL (7.6-11.3); RBC Red Blood Cell Count 4.85 M/uL (3.86-4.86)
[2021-08-18 21:45] LABS: Bilirubin Total 0.5 mg/dL (0.2-1.0); Potassium 3.7 mmol/L (3.5-5.1)
--- NOTE | 2021-08-18 22:05 | RAD REPORT ---
EXAM DESCRIPTION: CT - Abdomen Pelvis W Contrast - 08/18/2021 9:31 pm CLINICAL HISTORY: r/o diverticulitis COMPARISON: Abdomen Pelvis W Contrast dated 07/08/2020 TECHNIQUE: Biphasic, helical CT imaging of the abdomen and pelvis was performed following 100 ml non -ionic IV contrast. No oral contrast administered. All CT scans are performed using dose optimization technique as appropriate and may include automated exposure control or mA/KV adjustment according to patient size. FINDINGS: No suspicious findings in the lung bases. Diffuse fatty infiltration of the liver is present without a focal liver lesion. No portal vein abnor mality. No pancreatic or splenic abnormality. Gallbladder and biliary tree are also without suspiciou s finding. Symmetric renal function is seen with no hydronephrosis or suspicious renal mass. No pyelonephritis o r acute parenchymal process. No bladder abnormalities. No adrenal abnormalities. No stomach or small bowel abnormality. Appendix is normal. From cecum through descending colon no acu te colon process. Sigmoid colon shows 8 centimeter long segment of wall thickening and edema. There i s diverticulosis in this region. Stranding is seen in the adjacent fatty tissue. No abscess or extral uminal bowel content. No free air or pneumatosis. No hernia, mass or bulky lymphadenopathy. No suspicious bony findings. IMPRESSION: Mild sigmoid diverticulitis. No abscess, extraluminal bowel content, free air or other emergent finding.
--- NOTE | 2021-08-18 22:30 | ER ---
Nurse's Notes [facility] Name: Elizabeth Collins Age: 61 yrs Sex: Female : 1960 Arrival Date: 08/18/2021 Time: 19:33 Bed 14 Private MD: Diagnosis: Diverticulitis of intestine, part unspecified, without perforation or abscess without bleeding Presentation: 08/18 19:43 Chief complaint: Patient states: I am having lower abdominal pain. It started this jb4 morning. I am having diarrhea that also started this morning. Coronavirus screen: At this time, the client does not indicate any symptoms associated with coronavirus-19. Ebola Screen: No symptoms or risks identified at this time. Initial Sepsis Screen: Does the patient meet any 2 criteria? HR > 90 bpm. Yes Does the patient have a suspected source of infection? Yes: Acute abdominal pain. Risk Assessment: Do you want to hurt yourself or someone else? Patient reports no desire to harm self or others. Onset of symptoms was August 18, 2021. Transition of care: patient was not received from another setting of care. 19:43 Method Of Arrival: Ambulatory jb4 19:43 Acuity: BARBARA 3 jb4 Historical: - Allergies: 19:44 No Known Allergies; jb4 - PMHx: 19:44 None; jb4 - PSHx: 19:44 tubal ligation; jb4 - Immunization history:: Adult Immunizations up to date. - Social history:: Smoking status: Patient reports the use of cigarette tobacco products, smokes one pack cigarettes per day. Screenin:06 Abuse screen: Denies threats or abuse. Nutritional screening: No deficits noted. bb Tuberculosis screening: No symptoms or risk factors identified. Fall Risk None identified. Assessment: 21:06 General: Appears in no apparent distress. uncomfortable, Behavior is calm, cooperative. bb Pain: Complains of pain in abdomen Pain currently is 10 out of 10 on a pain scale. Neuro: Level of Consciousness is awake, alert, obeys commands, Oriented to person, place, time, situation. Cardiovascular: Capillary refill < 3 seconds Patient's skin is warm and dry. Respiratory: Respiratory effort is even, unlabored, Respiratory pattern is regular. GI: Bowel sounds present X 4 quads. Abd is soft X 4 quads Abdomen is tender to palpation X 4 quads. Reports diarrhea. Derm: Skin is pink, warm \T\ dry. Musculoskeletal: Circulation, motion, and sensation intact. 22:08 Reassessment: Patient is alert, oriented x 3, equal unlabored respirations, skin bb warm/dry/pink. she states the pain medication did not help EDP notified awaiting new orders. 23:23 Reassessment: Patient is alert, oriented x 3, equal unlabored respirations, skin bb warm/dry/pink. pt states pain is better 5/10. Pt verbalized understanding of and agrees to plan of care discharge instructions given pt ambulated with steady gait to exit accompanied by family Patient states feeling better. Patient states symptoms have improved. Vital Signs: 19:43 BP 172 / 92; Pulse 107; Resp 20; Temp 98.2(TE); Pulse Ox 96% ; Weight 90.72 kg (R); jb4 Height 5 ft. 4 in. (162.56 cm) (R); Pain 10/10; 21:06 BP 155 / 81; Pulse 96; Resp 18 S; Pulse Ox 99% on R/A; Pain 10/10; bb 22:10 BP 163 / 84; Pulse 92; Resp 18 S; Pulse Ox 98% on R/A; Pain 10/10; bb 23:24 BP 180 / 72; Pulse 95; Resp 18 S; Temp 98.6(O); Pulse Ox 96% on R/A; Pain 5/10; bb 19:43 Body Mass Index 34.33 (90.72 kg, 162.56 cm) jb4 ED Course: 19:33 Patient arrived in ED. jj6 19:44 Bety Seo FNP-C is [facility]. kb 19:44 Lam Brand MD is Attending Physician. kb 19:44 Triage completed. jb4 19:45 Arm band placed on right wrist. jb4 21:00 Initial lab(s) drawn, by me, sent to lab. Inserted saline lock: 20 gauge in right bb antecubital area, using aseptic technique. Blood collected. 21:06 Patient has correct armband on for positive identification. Placed in gown. Bed in low bb position. Call light in reach. Side rails up X 1. Adult w/ patient. media monitor on. Pulse ox on. Warm blanket given. Pillow given. 21:33 CT Abd/Pelvis - IV Contrast Only In Process Unspecified. EDMS 21:50 Bryanna Martinez, RN is Primary Nurse. bb 23:25 No provider procedures requiring assistance completed. IV discontinued, intact, bb bleeding controlled, No redness/swelling at site. Pressure dressing applied. Administered Medications: 21:06 Drug: NS 0.9% 1000 ml Route: IV; Rate: 1 bolus; Site: right antecubital; bb 22:00 Follow up: IV Status: Completed infusion; IV Intake: 950ml bb 21:06 Drug: Zofran (Ondansetron) 4 mg Route: IVP; Site: right antecubital; bb 22:00 Follow up: Response: No adverse reaction bb 21:06 Drug: morphine 4 mg Route: IVP; Infused Over: 4 mins; Site: right antecubital; bb 22:00 Follow up: Response: No change in condition bb 22:30 Drug: Cipro (ciprofloxacin) 500 mg Route: PO; bb 23:23 Follow up: Response: No adverse reaction bb 22:30 Drug: fentaNYL (PF) 50 mcg Route: IVP; Site: right antecubital; bb 23:23 Follow up: Response: No adverse reaction; Pain is decreased bb 22:45 Drug: Flagyl (metroNIDAZOLE) 500 mg Route: PO; bb 23:23 Follow up: Response: No adverse reaction bb Intake: 22:00 IV: 950ml; Total: 950ml. bb Outcome: 22:29 Discharge ordered by . kb 23:25 Discharged to home ambulatory, with family. bb 23:25 Condition: stable 23:25 Discharge instructions given to patient, Instructed on discharge instructions, follow up and referral plans. medication usage, Demonstrated understanding of instructions, follow-up care, medications, Prescriptions given X 4. 23:25 Patient left the ED. bb Signatures: Dispatcher [employer] EDMS Bety Seo, ANALY ALMAZANP-Bryanna Hou RN RN Darvin Astudillo RN RN jb4 Viri [id number] Corrections: (The following items were deleted from the chart) 19:45 19:43 Pulse 107bpm; Resp 20bpm; Pulse Ox 96%; Temp 98.2F Temporal; 90.72 kg Reported; jb4 Height 5 ft. 4 in. Reported; BMI: 34.3; Pain 10/10; jb4
--- NOTE | 2021-08-18 22:30 | EDPHYS ---
Physician Documentation [facility] Name: Elizabeth Collins Age: 61 yrs Sex: Female : 1960 Arrival Date: 08/18/2021 Time: 19:33 Bed 14 Private MD: ED Physician Lam Brand HPI: 08/18 21:57 This 61 yrs old Female presents to ER via Ambulatory with complaints of Abdominal Pain. kb 21:57 The patient has not experienced similar symptoms in the past. The patient has not kb recently seen a physician. 21:57 The patient presents with abdominal pain. Onset: The symptoms/episode began/occurred kb this morning. The symptoms do not radiate. Associated signs and symptoms: Pertinent positives: diarrhea, Pertinent negatives: fever, vomiting. The symptoms are described as constant. Modifying factors: The symptoms are alleviated by nothing, the symptoms are aggravated by nothing. Severity of pain: At its worst the pain was moderate in the emergency department the pain is unchanged. Historical: - Allergies: 19:44 No Known Allergies; jb4 - PMHx: 19:44 None; jb4 - PSHx: 19:44 tubal ligation; jb4 - Immunization history:: Adult Immunizations up to date. - Social history:: Smoking status: Patient reports the use of cigarette tobacco products, smokes one pack cigarettes per day. ROS: 21:56 Constitutional: Negative for fever, chills, and weight loss. kb 21:56 Abdomen/GI: Positive for abdominal pain, diarrhea, Negative for nausea and vomiting. 21:56 All other systems are negative. Exam: 21:57 Constitutional: This is a well developed, well nourished patient who is awake, alert, kb and in no acute distress. Head/Face: Normocephalic, atraumatic. ENT: Moist Mucous membranes Cardiovascular: Regular rate and rhythm with a normal S1 and S2. No gallops, murmurs, or rubs. No pulse deficits. Respiratory: Respirations even and unlabored. No increased work of breathing. Talking in full sentences Skin: Warm, dry with normal turgor. Normal color. MS/ Extremity: Pulses equal, no cyanosis. Neurovascular intact. Full, normal range of motion. Neuro: Awake and alert, GCS 15, oriented to person, place, time, and situation. Moves all extremities. Normal gait. Psych: Awake, alert, with orientation to person, place and time. Behavior, mood, and affect are within normal limits. 21:57 Abdomen/GI: Inspection: abdomen appears normal, Bowel sounds: normal, in all quadrants, Palpation: soft, in all quadrants, mild abdominal tenderness, in the right upper quadrant, right lower quadrant and left lower quadrant. Vital Signs: 19:43 BP 172 / 92; Pulse 107; Resp 20; Temp 98.2(TE); Pulse Ox 96% ; Weight 90.72 kg (R); jb4 Height 5 ft. 4 in. (162.56 cm) (R); Pain 10/10; 21:06 BP 155 / 81; Pulse 96; Resp 18 S; Pulse Ox 99% on R/A; Pain 10/10; bb 22:10 BP 163 / 84; Pulse 92; Resp 18 S; Pulse Ox 98% on R/A; Pain 10/10; bb 23:24 BP 180 / 72; Pulse 95; Resp 18 S; Temp 98.6(O); Pulse Ox 96% on R/A; Pain 5/10; bb 19:43 Body Mass Index 34.33 (90.72 kg, 162.56 cm) jb4 MDM: 19:50 Patient medically screened. kb 21:54 Data reviewed: vital signs, nurses notes. Data interpreted: Pulse oximetry: on room air kb is 99 %. Interpretation: normal. 22:16 Counseling: I had a detailed discussion with the patient and/or guardian regarding: the kb historical points, exam findings, and any diagnostic results supporting the discharge/admit diagnosis, lab results, radiology results, the need for outpatient follow up, a family practitioner, to return to the emergency department if symptoms worsen or persist or if there are any questions or concerns that arise at home. 22:25 ED course: Discussed diagnostic results with pt and outpatient treatment. Educated to kb return for worsening pain, fever, vomiting, inability to tolerate po antibiotics. Pt in agreement with plan of care and will return as needed. 08/18 19:50 Order name: CBC with Diff; Complete Time: 21:31 kb 08/18 19:50 Order name: CMP; Complete Time: 21:53 kb 08/18 19:50 Order name: Lipase; Complete Time: 21:53 kb 08/18 19:50 Order name: CT Abd/Pelvis - IV Contrast Only; Complete Time: 22:13 kb 08/18 22:47 Order name: CREATININE WHOLE BLOOD; Complete Time: 22:51 EDMS 08/18 19:50 Order name: IV Saline Lock; Complete Time: 21:06 kb 08/18 19:50 Order name: Labs collected and sent; Complete Time: 21:06 kb Administered Medications: 21:06 Drug: NS 0.9% 1000 ml Route: IV; Rate: 1 bolus; Site: right antecubital; bb 22:00 Follow up: IV Status: Completed infusion; IV Intake: 950ml bb 21:06 Drug: Zofran (Ondansetron) 4 mg Route: IVP; Site: right antecubital; bb 22:00 Follow up: Response: No adverse reaction bb 21:06 Drug: morphine 4 mg Route: IVP; Infused Over: 4 mins; Site: right antecubital; bb 22:00 Follow up: Response: No change in condition bb 22:30 Drug: Cipro (ciprofloxacin) 500 mg Route: PO; bb 23:23 Follow up: Response: No adverse reaction bb 22:30 Drug: fentaNYL (PF) 50 mcg Route: IVP; Site: right antecubital; bb 23:23 Follow up: Response: No adverse reaction; Pain is decreased bb 22:45 Drug: Flagyl (metroNIDAZOLE) 500 mg Route: PO; bb 23:23 Follow up: Response: No adverse reaction bb Disposition: 08/19 07:50 Co-signature as Attending Physician, Lam Brand MD. [email or web address] Disposition Summary: 08/18/21 22:29 Discharge Ordered Location: Home kb Condition: Stable kb Diagnosis - Diverticulitis of intestine, part unspecified, without perforation or abscess kb without bleeding Followup: kb - With: Emergency Department - When: As needed - Reason: Worsening of condition Followup: kb - With: Private Physician - When: 2 - 3 days - Reason: Recheck today's complaints, Continuance of care, Re-evaluation by your physician Discharge Instructions: - Discharge Summary Sheet kb - Diverticulitis, [id number] kb Forms: - Medication Reconciliation Form kb - Thank You Letter kb - Antibiotic Education kb - Prescription Opioid Use kb Prescriptions: - Flagyl 500 mg Oral Tablet - take 1 tablet by ORAL route every 8 hours for 10 days; 30 tablet; Refills: 0, kb Product Selection Permitted - Zofran 4 mg Oral Tablet - take 1 tablet by ORAL route every 6 hours As needed; 20 tablet; Refills: 0, kb Product Selection Permitted - Cipro 500 mg Oral Tablet - take 1 tablet by ORAL route every 12 hours for 10 days; 20 tablet; Refills: 0, kb Product Selection Permitted - Diclofenac Sodium 75 mg Oral tablet,delayed release (DR/EC) - take 1 tablet by ORAL route 2 times per day As needed; 30 tablet; Refills: 0, kb Product Selection Permitted Signatures: Dispatcher [employer] EDMS Bety Seo, JOSE MARTIN-C PHYSICAL EDUCATION DEPARTMENT CHAIR-Bryanna Hou, RN RN bb Darvin Singh RN RN jb4 Lam Brand MD MD mh7 Corrections: (The following items were deleted from the chart) 08/18 21:57 21:57 Abdomen/GI: Inspection: abdomen appears normal, Bowel sounds: normal, in all kb quadrants, Palpation: soft, in all quadrants, mild abdominal tenderness, in the left upper quadrant and left lower quadrant, kb
[2021-08-18] MEDS ORDERED: CIPROFLOXACIN HCL 500 MG TAB ONE (22:32)
[2021-08-18] MEDS ORDERED: FENTANYL CITR 100 MCG/2 ML ONE (22:33)
[2021-08-18] MEDS ORDERED: metroNIDAZOLE 500 MG TABLET ONE ×2 (22:34→22:40)
[2021-08-18 23:55] VITALS: BP 180/72; TEMP 98.6; O2SAT 96
== END 2021-08-18 23:25 | disposition home or self-care (01) ==
LOC: ER 19:30
DX: K57.32 Diverticulitis of large intestine without perforation or abscess without bleeding (principal); F17.210 Nicotine dependence, cigarettes, uncomplicated
CPT/HCPCS: 96361; 85025; 36415; 82565; 83690; 80053; 74177; 96375; 96374; 99284; Q9967; J3010; J7030; J2405

== ENCOUNTER 2021-12-22 18:43 | Emergency (ER) | payer BC ==
--- NOTE | 2021-12-22 19:24 | RAD REPORT ---
EXAM DESCRIPTION: CT - Stone Protocol - 12/22/2021 7:10 pm CLINICAL HISTORY: Abdominal pain. Left flank pain COMPARISON: August 2021 TECHNIQUE: Computed axial tomography of the abdomen pelvis was obtained without oral or IV contrast. Lack of IV and oral contrast limits evaluation of solid organs, appendix, bowel, and vessels. Lakhani l reformatted images were obtained and reviewed. All CT scans are performed using dose optimization technique as appropriate and may include automated exposure control or mA/KV adjustment according to patient size. FINDINGS: A renal calculus is not seen. An ureteral calculus is not noted. A bladder calculus is not present. Fatty liver. Liver is borderline enlarged Splenic granulomas. The pancreas and adrenals appear grossly normal There is no evidence of diverticulitis. The appendix appears normal Small umbilical hernia. No adnexal mass IMPRESSION: Negative for a genitourinary calculus
[2021-12-22 19:29] LABS: Urine Blood 1+ (Negative); Urine Glucose Negative (Negative); Urine Protein Trace (Negative); Urine Specific Gravity 1.015 (1.005-1.030)
[2021-12-22 19:44] LABS: MPV 8.7 fL (7.6-11.3)
[2021-12-22 19:47] LABS: Absolute Lymphocytes (CBC) 2.8 K/uL (0.7-4.9); Hematocrit 45.7 % (36.0-45.0); Lymphocytes % 23.5 % (15.3-44.8); MCV 89.4 fL (80-100); RBC Red Blood Cell Count 5.12 M/uL (3.86-4.86)
[2021-12-22 19:47] LABS: Urine Bacteria <20 /HPF (<20); Urine Mucus Slight /HPF (None Seen); Urine RBC <5 /HPF (None Seen)
[2021-12-22] MEDS ORDERED: ONDANSETRON 4 MG/2 ML VIAL ONE (19:53)
[2021-12-22] MEDS ORDERED: MORPHINE 4 MG/ML SYR ONE (19:53)
[2021-12-22 20:00] LABS: Albumin 4.1 g/dL (3.4-5.0); Bilirubin Total 0.3 mg/dL (0.2-1.0); Potassium 3.5 mmol/L (3.5-5.1); Protein, Total 8.2 g/dL (6.4-8.2)
[2021-12-22] MEDS ORDERED: HYDROMORPHONE HCL 1 MG/ML INJ ONE (20:58)
--- NOTE | 2021-12-22 20:59 | ER ---
Nurse's Notes [facility] Name: Elizabeth Collins Age: 61 yrs Sex: Female : 1960 Arrival Date: 12/22/2021 Time: 18:50 Bed 8 Private MD: Diagnosis: Low back pain Presentation: 12/22 18:51 Chief complaint: Patient states: "I was seen at urgent care and they told me I have hb blood in my urine and maybe a kidney stone." Pt c/o left low back pain x 1 week. Coronavirus screen: At this time, the client does not indicate any symptoms associated with coronavirus-19. Ebola Screen: No symptoms or risks identified at this time. Risk Assessment: Do you want to hurt yourself or someone else? Patient reports no desire to harm self or others. Onset of symptoms was December 15, 2021. 18:51 Method Of Arrival: Ambulatory hb 18:51 Acuity: BARBARA 3 hb 18:51 Initial Sepsis Screen: Does the patient meet any 2 criteria? No. Patient's initial hb sepsis screen is negative. Does the patient have a suspected source of infection? No. Patient's initial sepsis screen is negative. Triage Assessment: 18:53 General: Appears in no apparent distress. Behavior is calm, cooperative. Pain: Pain hb currently is 10 out of 10 on a pain scale. Neuro: Level of Consciousness is awake, alert, obeys commands, Oriented to person, place, time, situation. Cardiovascular: Patient's skin is warm and dry. Respiratory: Respiratory effort is even, unlabored, Respiratory pattern is regular, symmetrical. Historical: - Allergies: 18:53 No Known Allergies; hb - PSHx: 18:53 tubal ligation; hb - Immunization history:: Adult Immunizations up to date. - Social history:: Smoking status: Patient reports the use of cigarette tobacco products, smokes one-half pack cigarettes per day. Screenin:15 Abuse screen: Denies threats or abuse. Nutritional screening: No deficits noted. jb4 Tuberculosis screening: No symptoms or risk factors identified. Fall Risk None identified. Assessment: 19:15 General: Appears in no apparent distress. uncomfortable, Behavior is calm, cooperative, jb4 appropriate for age. Pain: Complains of pain in low back area Pain does not radiate. Pain currently is 10 out of 10 on a pain scale. Neuro: Level of Consciousness is awake, alert, obeys commands, Oriented to person, place, time, situation. Cardiovascular: Patient's skin is warm and dry. Respiratory: Airway is patent Respiratory effort is even, unlabored, Respiratory pattern is regular, symmetrical. GI: No signs and/or symptoms were reported involving the gastrointestinal system. : Reports pain in lower back. EENT: No signs and/or symptoms were reported regarding the EENT system. Derm: Skin is intact, Skin is pink, warm \\T\\ dry. Musculoskeletal: Circulation, motion, and sensation intact. Range of motion: intact in all extremities. 20:30 Reassessment: Patient appears in no apparent distress at this time. Patient and/or jb4 family updated on plan of care and expected duration. Pain level reassessed. Patient is alert, oriented x 3, equal unlabored respirations, skin warm/dry/pink. 21:30 Reassessment: Patient appears in no apparent distress at this time. Patient and/or jb4 family updated on plan of care and expected duration. Pain level reassessed. Patient is alert, oriented x 3, equal unlabored respirations, skin warm/dry/pink. 22:41 Reassessment: Patient appears in no apparent distress at this time. Patient and/or jb4 family updated on plan of care and expected duration. Pain level reassessed. Patient is alert, oriented x 3, equal unlabored respirations, skin warm/dry/pink. 23:15 Reassessment: Patient appears in no apparent distress at this time. Patient and/or jb4 family updated on plan of care and expected duration. Pain level reassessed. Patient is alert, oriented x 3, equal unlabored respirations, skin warm/dry/pink. Vital Signs: 18:51 BP 208 / 134; Pulse 90; Resp 16; Temp 98.7(TE); Pulse Ox 98% ; Weight 86.18 kg; Height hb 5 ft. 4 in. (162.56 cm); Pain 10/10; 20:41 BP 221 / 121; Pulse 85; Resp 16; Pulse Ox 100% on R/A; jb4 21:38 BP 238 / 105; Pulse 80; Resp 16; Pulse Ox 94% ; jb4 22:00 BP 214 / 94; Pulse 79; Resp 16; Pulse Ox 94% on R/A; jb4 22:30 BP 215 / 102; Pulse 79; Resp 16; Pulse Ox 93% on R/A; jb4 23:00 BP 199 / 108; Pulse 72; Resp 16; Pulse Ox 95% on R/A; jb4 18:51 Body Mass Index 32.61 (86.18 kg, 162.56 cm) ED Course: 18:50 Patient arrived in ED. am2 18:52 Bety Seo FNP-C is [facility]. kb 18:52 Mohamud Sanchez MD is Attending Physician. kb 18:53 Triage completed. hb 18:53 Arm band placed on. hb 19:12 CT Stone Protocol In Process Unspecified. EDMS 19:15 Patient has correct armband on for positive identification. Bed in low position. Call jb4 light in reach. Side rails up X 1. Client placed on continuous cardiac and pulse oximetry monitoring. NIBP monitoring applied. 20:28 Darvin Singh, RN is Primary Nurse. jb4 23:44 No provider procedures requiring assistance completed. IV discontinued, intact, jb4 bleeding controlled, No redness/swelling at site. Pressure dressing applied. Administered Medications: 20:00 Drug: morphine 4 mg Route: IVP; Infused Over: 4 mins; Site: right forearm; jb4 20:00 Drug: Zofran (Ondansetron) 4 mg Route: IVP; Site: right forearm; jb4 21:02 Drug: Dilaudid (HYDROmorphone) 1 mg Route: IVP; Site: right wrist; ke1 21:09 Drug: NS 0.9% 1000 ml Route: IV; Rate: 1000 ml; Site: right wrist; ke1 21:47 Drug: cloNIDine 0.1 mg Route: PO; jb4 Medication: 23:00 VIS not applicable for this client. jb4 Outcome: 20:59 Discharge ordered by . kb 23:44 Discharged to home ambulatory. jb4 23:44 Condition: stable 23:44 Discharge instructions given to patient, Instructed on discharge instructions, follow up and referral plans. medication usage, Demonstrated understanding of instructions, follow-up care, medications, Prescriptions given X 1. 23:44 Patient left the ED. jb4 Signatures: Dispatcher [employer] EDAL Bety Seo FNP-C FNP-Ckb Baxter, Heather, RN RN Darvin Singh RN RN jb4 Katie Reis am2 Brittany Dumont RN RN ke1 Corrections: (The following items were deleted from the chart) 18:54 18:51 Pulse 90bpm; Resp 16bpm; Pulse Ox 98%; Temp 98.7F Temporal; 86.18 kg; Height 5 hb ft. 4 in.; BMI: 32.6; Pain 10/10; hb
--- NOTE | 2021-12-22 20:59 | EDPHYS ---
Physician Documentation [facility] Name: Elizabeth Collins Age: 61 yrs Sex: Female : 1960 Arrival Date: 12/22/2021 Time: 18:50 Bed 8 Private MD: ED Physician Mohamud Sanchez HPI: 12/22 19:38 This 61 yrs old Female presents to ER via Ambulatory with complaints of Urinary Problem kb - blood, Back Pain. 19:38 The patient complains of pain in the left flank. The pain does not radiate. Onset: The kb symptoms/episode began/occurred 1 week(s) ago. Modifying factors: The symptoms are alleviated by nothing. the symptoms are aggravated by nothing. Associated signs and symptoms: Pertinent positives: hematuria. Severity of pain: At its worst the pain was moderate in the emergency department the pain is unchanged. The patient has not experienced similar symptoms in the past. The patient has been recently seen by a physician:. Pt reports she has had left flank pain for a week. Has been seen here twice and urgent care twice for this pain and was prescribed pain medication, muscle relaxers, steroids. States nothing has worked so she went back to [facility] and was told she had blood in her urine. Sent to ED for CT. Historical: - Allergies: 18:53 No Known Allergies; hb - PSHx: 18:53 tubal ligation; hb - Immunization history:: Adult Immunizations up to date. - Social history:: Smoking status: Patient reports the use of cigarette tobacco products, smokes one-half pack cigarettes per day. ROS: 19:37 Constitutional: Negative for fever, chills, and weight loss. kb 19:37 : Positive for flank pain, hematuria. 19:37 All other systems are negative. Exam: 19:37 Constitutional: This is a well developed, well nourished patient who is awake, alert, kb and in no acute distress. Head/Face: Normocephalic, atraumatic. ENT: Moist Mucous membranes Cardiovascular: Regular rate and rhythm with a normal S1 and S2. No gallops, murmurs, or rubs. No pulse deficits. Respiratory: Respirations even and unlabored. No increased work of breathing. Talking in full sentences Back: No spinal tenderness. No costovertebral tenderness. Full range of motion. Skin: Warm, dry with normal turgor. Normal color. MS/ Extremity: Pulses equal, no cyanosis. Neurovascular intact. Full, normal range of motion. Neuro: Awake and alert, GCS 15, oriented to person, place, time, and situation. Moves all extremities. Normal gait. Psych: Awake, alert, with orientation to person, place and time. Behavior, mood, and affect are within normal limits. 19:37 Abdomen/GI: Inspection: abdomen appears normal, Bowel sounds: normal, Palpation: soft, in all quadrants, mild abdominal tenderness, in the left lower quadrant, moderate abdominal tenderness, in the left upper quadrant. Vital Signs: 18:51 BP 208 / 134; Pulse 90; Resp 16; Temp 98.7(TE); Pulse Ox 98% ; Weight 86.18 kg; Height hb 5 ft. 4 in. (162.56 cm); Pain 10; 20:41 BP 221 / 121; Pulse 85; Resp 16; Pulse Ox 100% on R/A; jb4 21:38 BP 238 / 105; Pulse 80; Resp 16; Pulse Ox 94% ; jb4 22:00 BP 214 / 94; Pulse 79; Resp 16; Pulse Ox 94% on R/A; jb4 22:30 BP 215 / 102; Pulse 79; Resp 16; Pulse Ox 93% on R/A; jb4 23:00 BP 199 / 108; Pulse 72; Resp 16; Pulse Ox 95% on R/A; jb4 18:51 Body Mass Index 32.61 (86.18 kg, 162.56 cm) hb MDM: 18:52 Patient medically screened. kb 19:38 Data reviewed: vital signs, nurses notes. Data interpreted: Pulse oximetry: on room air kb is 98 %. Interpretation: normal. 20:58 Counseling: I had a detailed discussion with the patient and/or guardian regarding: the kb historical points, exam findings, and any diagnostic results supporting the discharge/admit diagnosis, lab results, radiology results, the need for outpatient follow up, a family practitioner, to return to the emergency department if symptoms worsen or persist or if there are any questions or concerns that arise at home. 20:58 ED course: Pt states dilaudid is the only medicine that ever works for her pain. kb 12/22 18:55 Order name: CBC with Diff; Complete Time: 19:52 kb 12/22 18:55 Order name: CMP; Complete Time: 20:02 kb 12/22 18:55 Order name: Lipase; Complete Time: 20:02 kb 12/22 18:55 Order name: Urine Microscopic Only; Complete Time: 19:47 kb 12/22 18:55 Order name: CT Stone Protocol; Complete Time: 19:29 kb 12/22 19:29 Order name: Urine Dipstick-Ancillary; Complete Time: 19:30 EDMS 12/22 18:55 Order name: IV Saline Lock; Complete Time: 19:43 kb 12/22 18:55 Order name: Labs collected and sent; Complete Time: 19:43 kb 12/22 18:55 Order name: Urine Dipstick-Ancillary (obtain specimen); Complete Time: 19:43 kb 12/22 20:41 Order name: Vital Signs; Complete Time: 20:41 kb Administered Medications: 20:00 Drug: morphine 4 mg Route: IVP; Infused Over: 4 mins; Site: right forearm; jb4 20:00 Drug: Zofran (Ondansetron) 4 mg Route: IVP; Site: right forearm; jb4 21:02 Drug: Dilaudid (HYDROmorphone) 1 mg Route: IVP; Site: right wrist; ke1 21:09 Drug: NS 0.9% 1000 ml Route: IV; Rate: 1000 ml; Site: right wrist; ke1 21:47 Drug: cloNIDine 0.1 mg Route: PO; jb4 Disposition Summary: 12/22/21 20:59 Discharge Ordered Location: Home kb Condition: Stable kb Diagnosis - Low back pain kb Followup: kb - With: Emergency Department - When: As needed - Reason: Worsening of condition Followup: kb - With: Private Physician - When: 2 - 3 days - Reason: Recheck today's complaints, Continuance of care, Re-evaluation by your physician Discharge Instructions: - Discharge Summary Sheet kb - Acute Back Pain, Adult kb - Flank Pain, Adult, [place] kb Forms: - Medication Reconciliation Form kb - Thank You Letter kb - Antibiotic Education kb - Prescription Opioid Use kb Prescriptions: - Diclofenac Sodium 75 mg Oral tablet,delayed release (DR/EC) - take 1 tablet by ORAL route 2 times per day As needed; 30 tablet; Refills: 0, kb Product Selection Permitted Signatures: Dispatcher [employer] EDBety East, [employer]-C [employer]-Ckb Crystal Yuan, RN RN hb Darvin Singh, RN RN jb4 Brittany Dumont, RN RN ke1
[2021-12-22] MEDS ORDERED: NA CHLORIDE 0.9% 1,000 ML ONE (21:02)
[2021-12-22] MEDS ORDERED: cloNIDine HCL 0.1 MG TAB ONE (21:44)
[2021-12-22 23:52] VITALS: TEMP 98.7
[2021-12-22 23:58] VITALS: BP 199/108; O2SAT 95
== END 2021-12-22 23:44 | disposition home or self-care (01) ==
LOC: ER 18:43
DX: M54.50 Low back pain, unspecified (principal); R10.814 Left lower quadrant abdominal tenderness; R10.812 Left upper quadrant abdominal tenderness; R31.9 Hematuria, unspecified; F17.210 Nicotine dependence, cigarettes, uncomplicated
CPT/HCPCS: 85025; 36415; 83690; 80053; 76377; 74176; 99283; J1170; J7030; J2405; 81003; 81015

== ENCOUNTER 2023-09-16 19:29 | Emergency (ER) | payer SELFPAY ==
[2023-09-16] MEDS ORDERED: ONDANSETRON 4 MG/2 ML VIAL ONE (21:30)
[2023-09-16] MEDS ORDERED: NA CHLORIDE 0.9% 1,000 ML ONE (21:30)
[2023-09-16 22:12] LABS: Absolute Basophils 0.2 K/uL (0-0.5); Absolute Eosinophils 0.2 K/uL (0-0.5); Absolute Lymphocytes (CBC) 2.9 K/uL (0.7-4.9); Absolute Monocytes 0.7 K/uL (0.1-1.3); Absolute Neutrophil 10.6 K/uL (1.8-8.0); Basophils % 1.3 % (0-1.3); Hematocrit 45.1 % (36.0-45.0); Lymphocytes % 20.1 % (15.3-44.8); MCH 29.2 pg (27.0-35.0); MCHC 33.2 g/dL (32.0-36.0); MCV 87.8 fL (80-100); MPV 8.6 fL (7.6-11.3); Monocytes % 4.6 % (3.3-12.3); Platelets 376 thou/uL (152-406); RBC Red Blood Cell Count 5.13 M/uL (3.86-4.86); Red Cell Distribution Width 14.5 % (12.1-15.2)
[2023-09-16 22:16] LABS: Specific Gravity 1.016 (1.005-1.030); Sqamous Epithelial <5 /HPF (None Seen); Urine Bacteria <20 /HPF (<20); Urine Bilirubin NEGATIVE (Negative); Urine Blood Negative (Negative); Urine Clarity Extremely Turbid (Clear); Urine Color Yellow (Yellow); Urine Culture Reflex Order NOT NEEDED; Urine Glucose NEGATIVE (Negative); Urine Ketones NEGATIVE (Negative); Urine Microscopic Reflex YN ORDER UMIC; Urine Mucus 2+ /HPF (None Seen); Urine Nitrite NEGATIVE (Negative); Urine Protein 1+ (Negative); Urine RBC <5 /HPF (None Seen); Urine Urobilinogen Normal (Normal); Urine WBC <5 /HPF (<5)
[2023-09-16 22:24] LABS: Albumin 4.3 g/dL (3.4-5.0); Anion Gap 9.6 mEq/L (5.0-15.0); Bilirubin Total 0.8 mg/dL (0.2-1.0); Globulin 4.4 g/dL (2.3-3.5); Potassium 3.6 mEq/L (3.5-5.1); Protein, Total 8.7 g/dL (6.4-8.2)
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
--- NOTE | 2023-09-16 22:37 | ER ---
Nurse's Notes [facility] Name: Elizabeth Collins Age: 63 yrs Sex: Female : 1960 Arrival Date: 09/16/2023 Time: 19:29 Bed 28 Private MD: Diagnosis: Dehydration Presentation: 09/15 20:24 Chief complaint: Patient states: "I get overheated really easily and I' really nauseous as6 and have been vomiting". Coronavirus screen: At this time, the client does not indicate any symptoms associated with coronavirus-19. Ebola Screen: No symptoms or risks identified at this time. Initial Sepsis Screen: Does the patient meet any 2 criteria? No. Patient's initial sepsis screen is negative. Does the patient have a suspected source of infection? No. Patient's initial sepsis screen is negative. Risk Assessment: Do you want to hurt yourself or someone else? Patient reports no desire to harm self or others. Onset of symptoms was September 15, 2023. 20:24 Acuity: BARBARA 3 as6 20:24 Method Of Arrival: Ambulatory as6 Historical: - Allergies: 20:29 No Known Allergies; as6 - PMHx: 20:29 Hypercholesterolemia; Hypertensive disorder; Hypothyroidism; Diabetes mellitus; as6 - PSHx: 20:29 tubal ligation; as6 - Immunization history:: Adult Immunizations up to date. - Infectious Disease History:: Denies. - Social history:: Smoking status: Patient reports the use of cigarette tobacco products, smokes one pack cigarettes per day. Screenin:34 [facility] ED Fall Risk Assessment (Adult) History of falling in the last 3 months, bm8 including since admission No falls in past 3 months (0 pts) Confusion or Disorientation No (0 pts) Intoxicated or Sedated No (0 pts) Impaired Gait No (0 pts) Mobility Assist Device Used No (0 pt) Altered Elimination No (0 pt) Score/Fall Risk Level 0 - 2 = Low Risk Oriented to surroundings, Maintained a safe environment, Educated pt \\T\\ family on fall prevention, incl call for assistance when getting out of bed, Assessed \\T\\ reinforced patient's understanding of fall precautions, Hourly rounding (assess needs \\T\\ fall precautionary measures) done. Abuse screen: Denies threats or abuse. Nutritional screening: No deficits noted. Tuberculosis screening: No symptoms or risk factors identified. Assessment: 21:34 Pain: Complains of pain in abdomen Pain currently is 8 out of 10 on a pain scale. bm8 Quality of pain is described as aching, dull. Neuro: No deficits noted. Level of Consciousness is awake, alert, obeys commands, Oriented to person, place, time, situation, Appropriate for age. Cardiovascular: No deficits noted. Respiratory: No deficits noted. Airway is patent Trachea midline Respiratory effort is even, unlabored, Respiratory pattern is regular, symmetrical, Breath sounds are clear bilaterally. GI: Abdomen is flat, non-distended, Bowel sounds present X 4 quads. Abd is soft and non tender Reports lower abdominal pain, nausea, vomiting. : No signs and/or symptoms were reported regarding the genitourinary system. Urine is clear. EENT: No signs and/or symptoms were reported regarding the EENT system. Derm: No signs and/or symptoms reported regarding the dermatologic system. Musculoskeletal: No signs and/or symptoms reported regarding the musculoskeletal system. 22:41 Reassessment: Patient and/or family updated on plan of care and expected duration. Pain fu level reassessed. Patient is alert, oriented x 3, equal unlabored respirations, skin warm/dry/pink. Vital Signs: 20:24 BP 148 / 76; Pulse 90; Resp 18; Temp 97.6; Pulse Ox 97% ; Weight 87.09 kg; Height 5 ft. as6 4 in. ; Pain 3/10; 21:34 BP 175 / 81; Pulse 68; Resp 17; Temp 97.5; Pulse Ox 99% ; Pain 8/10; bm8 22:00 BP 131 / 65; Pulse 76; Resp 18; Pain 0/10; fu 20:24 Body Mass Index 32.96 (87.09 kg, 162.56 cm) as6 20:24 Pain Scale: Adult as6 21:34 Pain Scale: Adult bm8 22:00 Pain Scale: Adult fu Delvis Coma Score: 21:34 Eye Response: spontaneous(4). Motor Response: obeys commands(6). Verbal Response: bm8 oriented(5). Total: 15. ED Course: 19:34 Patient arrived in ED. rg4 20:18 Soledad Lundberg MD is Attending Physician. sp3 20:29 Triage completed. as6 20:29 Arm band placed on. as6 21:34 Marco A Escalona, RN is Primary Nurse. bm8 21:34 Patient has correct armband on for positive identification. Bed in low position. Call bm8 light in reach. Side rails up X 1. Client placed on continuous cardiac and pulse oximetry monitoring. NIBP monitoring applied. Pulse ox on. NIBP on. Door closed. Noise minimized. Visitors limited. Warm blanket given. Pillow given. Verbal reassurance given. Head of bed elevated. 21:34 No provider procedures requiring assistance completed. Initial lab(s) drawn, by ndceli sent to lab. Urine collected: clean catch specimen, clear. Inserted saline lock: 20 gauge in left antecubital area, using aseptic technique. Blood collected. 22:25 Provided Education on:. Report given to YA Manzanares. bm8 22:52 IV discontinued, bleeding controlled, Pressure dressing applied. fu Administered Medications: 21:34 Drug: NS 0.9% IV 1000 ml IV at 1 bolus Per protocol; 1000 mL bolus Route: IV; Rate: 1 bm8 bolus; Site: left antecubital; 21:34 Drug: Ondansetron IVP 4 mg IVP once; over 2 minutes Route: IVP; Site: left antecubital; bm8 Medication: 21:34 VIS not applicable for this client. bm8 Outcome: 22:37 Discharge ordered by . sp3 22:52 Discharged to home ambulatory, fu 22:52 Condition: good 22:52 Discharge instructions given to patient, Instructed on discharge instructions, follow up and referral plans. Demonstrated understanding of instructions, Prescriptions given X 0 22:53 Patient left the ED. fu Signatures: Neva Lizarraga rg4 Krzysztof Chavez, RN RN Soledad Lundberg MD MD sp3 Hugo Mcdonough, YA RN as6 Marco A Escalona, RN RN bm8
[2023-09-17 02:27] VITALS: BP 131/65; TEMP 97.5; O2SAT 99
== END 2023-09-16 22:53 | disposition home or self-care (01) ==
LOC: ER 19:29
DX: E86.0 Dehydration (principal); R11.10 Vomiting, unspecified; I10 Essential (primary) hypertension; E78.00 Pure hypercholesterolemia, unspecified; E03.9 Hypothyroidism, unspecified; E11.9 Type 2 diabetes mellitus without complications; F17.210 Nicotine dependence, cigarettes, uncomplicated
CPT/HCPCS: 36415; 80053; 81001; 85025; 96374; 99284; J2405; J7030

== ENCOUNTER 2024-02-16 12:06 | Emergency (ER) | payer SELFPAY ==
--- OUTSIDE RECORDS SUMMARY | 2024-02-16 12:10 | XMS REPORT | Continuity of Care Document ---
Author Name Unknown Address [address] [facility] [address] [place] [address] [facility] thconnect Address [address] [facility] [address] [place] [address] Care Team Providers Care Bpm Developer Name Role Phone KRIS VO Primary Care Physician THAI Oropeza Attending Clinician Unavailable Gayatri DAMON, Thai Attending Clinician Thai Mendieta MD Attending Clinician Camilo Dowd Attending Clinician CAMILO BELLO Attending Clinician Unavailable LUX VICKERS Attending Clinician Unavaila LUX Warren Attending Clinician Unavaila andrea Doctor Unassigned, [place] Attending Clinician U navailable CAMILO BELLO Admitting Clinician Unavailable Payers Payer Name Policy Type Policy Number Effective Date Expirati on Date Source Allergies, Adverse Reactions, Alerts Allergy Name Allergy Type Status Severity Reaction(s) Onset Date Inactive Date Treating Clinician Comments Source NO KNOWN ALLERGIE S Drug Class Active [facility] Social History Social Habit Start Date Stop Date Quantity Comments Source History of tobacco use Cigarette Smoker [facility] Gender identity [facility] Sexual orientation U [facility] Exposure to SARS-CoV-2 (event) 2022-07-27 00:00:00 2022-08-06 07:01:00 Not sure [facility] Tobacco use and exposure 2022-07-03 00:00:00 2022-07-03 00:00:00 Smokeless tobacco non-user [facility] History of Social function 2022-07-03 00:00:00 2022-07-03 00:00:00 [facility] Sex assigned at 1960 00:00:00 1960 00:00:00 [facility] Smoking Status Start Date Stop Date Source Smokes tobacco daily 2022-07-03 00:00:00 [facility] Medications Ordered Medication Name Filled Medication Name Start Date Stop Date Current Medication? Ordering Clinician Indication Dosage Frequency Signature (SIG) Comments Components Source valsartan 320 mg tablet 11-25 00:00: 00 Yes [id number] 320mg Take 1 tablet by mouth in the morning. [facility] amLODIPine 10 mg tablet 11-25 00:00: 00 Yes [id number] 10mg Take 1 tablet by mouth in the morning. [facility] carvediloL 6.25 mg tablet 11-23 00:00: 00 11-23 00:00 :00 Yes [id number] 6.25mg Take 1 tablet by mouth in the morning and 1 tablet in the evening. Take with meals. [facility] triamterene -hydrochlor othiazide 37.5-25 mg per capsule 06-02 00:00: 00 06-12 00:00 :00 No [id number] 1{capsu le} Take 1 capsule by mouth every morning. [facility] amLODIPine 10 mg tablet 2022-03 00:00: 00 11-25 00:00 :00 No [id number] 10mg Take 1 tablet by mouth in the morning. [facility] amLODIPine 10 mg tablet 2022-03 00:00: 00 Yes [id number] 10mg Take 1 tablet by mouth in the morning. [facility] valsartan 320 mg tablet 2022-03 00:00: 00 11-25 00:00 :00 No [id number] 320mg Take 1 tablet by mouth in the morning. [facility] carvediloL 6.25 mg tablet 2022-03 00:00: 00 11-23 00:00 :00 No [id number] 6.25mg Take 1 tablet by mouth in the morning and 1 tablet in the evening. Take with meals. [facility] carvediloL 6.25 mg tablet 2022-11-07 00:00: 00 01-22 00:00 :00 No [id number] 6.25mg Take 1 tablet by mouth in the morning and 1 tablet in the evening. Take with meals. [facility] amLODIPine 10 mg tablet 0 11-07 00:00: 00 01-22 00:00 :00 No [id number] 10mg Take 1 tablet by mouth in the morning. [facility] valsartan 320 mg tablet 11-07 00:00: 00 01-22 00:00 :00 No [id number] 320mg Take 1 tablet by mouth in the morning. [facility] carvediloL 6.25 mg tablet 0 7-05 00:00: 00 11-07 00:00 :00 No 6.25mg Take 1 tablet by mouth in the morning and 1 tablet in the evening. Take with meals. [facility] eszopiclone 3 mg tablet 0 530 15:45: 27 Yes at bedtime as needed (for sleep). [facility] valsartan 320 mg tablet 2022-0 5-02 00:00: 00 11-07 00:00 :00 No [id number] 320mg Take 1 tablet by mouth in the morning. [facility] amLODIPine 10 mg tablet 2022-0 5-02 00:00: 00 11-07 00:00 :00 No [id number] 10mg Take 1 tablet by mouth in the morning. [facility] eszopiclone 3 mg tablet 2022-0 4-26 13:44: 54 Yes [facility] esomeprazol e 40 mg capsule 2022-0 4-18 00:00: 00 Yes 40mg Take 1 capsule by mouth every morning. [facility] SERTraline 25 mg tablet 2022-0 4-18 00:00: 00 Yes 25mg Take 1 tablet by mouth in the morning. [facility] amLODIPine 5 mg tablet 18 00:00: 00 07-09 00:00 :00 No 5mg Take 1 tablet by mouth in the morning. [facility] valsartan 160 mg tablet 18 00:00: 00 07-09 00:00 :00 No 160mg Take 1 tablet by mouth in the morning. [facility] aspirin 81 mg EC tablet 05-30 00:00: 00 Yes 81mg Take 1 tablet by mouth at bedtime. [facility] busPIRone 5 mg tablet 05-30 00:00: 00 Yes TAKE ONE (1) TO TWO (2) TABLET(S) BY MOUTH TWICE A DAY NEEDED. [facility] Vital Signs Vital Name Observation Time Observation Value Comments S ource Systolic blood pressure 2023-06-03 20:09:00 128 mm[Hg] [facility] Diastolic blood pressure 2023-06-03 20:09:00 67 mm[Hg] [facility] Heart rate 2023-06-03 20:09:00 82 /min [facility] Body temperature 2023-06-03 20:09:00 36.78 Cami [facility] Respiratory rate 2023-06-03 20:09:00 20 /min [facility] Body height 2023-06-03 20:09:00 162.6 cm [facility] Body weight 2023-06-03 20:09:00 92.216 kg [facility] BMI 2023-06-03 20:09:00 34.90 kg/m2 [facility] Oxygen saturation in Arterial blood by Pulse oximetry 2023-06-03 20:09:00 92 /min [facility] Systolic blood pressure 2022-11-07 20:09:00 134 mm[Hg] [facility] Diastolic blood pressure 2022-11-07 20:09:00 81 mm[Hg] [facility] Heart rate 2022-11-07 20:09:00 79 /min [facility] Body height 2022-11-07 20:09:00 162.6 cm [facility] Body weight 2022-11-07 20:09:00 92.534 kg [facility] BMI 2022-11-07 20:09:00 35.02 kg/m2 [facility] Oxygen saturation in Arterial blood by Pulse oximetry 2022-11-07 20:09:00 96 /min [facility] Heart rate 2022-08-06 20:50:00 84 /min [facility] Systolic blood pressure 2022-08-06 20:50:00 131 mm[Hg] her machine repeat at breast level [facility] Diastolic blood pressure 2022-08-06 20:50:00 72 mm[Hg] her machine repeat at breast level [facility] Respiratory rate 2022-08-06 20:45:00 19 /min [facility] Body height 2022-08-06 20:45:00 162.6 cm [facility] Body weight 2022-08-06 20:45:00 90.719 kg [facility] BMI 2022-08-06 20:45:00 34.33 kg/m2 [facility] Oxygen saturation in Arterial blood by Pulse oximetry 2022-08-06 20:45:00 95 /min [facility] Systolic blood pressure 2022-07-03 18:41:00 144 mm[Hg] [facility] Diastolic blood pressure 2022-07-03 18:41:00 77 mm[Hg] [facility] Heart rate 2022-07-03 18:41:00 83 /min [facility] Oxygen saturation in Arterial blood by Pulse oximetry 2022-07-03 18:41:00 92 /min [facility] Respiratory rate 2022-07-03 18:38:00 19 /min [facility] Body height 2022-07-03 18:38:00 162.6 cm [facility] Body weight 2022-07-03 18:38:00 88.95 kg [facility] BMI 2022-07-03 18:38:00 33.66 kg/m2 [facility] Procedures Procedure Date / Time Performed Performing Clinician Source CONSENT/REFUSAL FOR DIAGNOSIS AND TREATMENT 2022-08-06 20:34:30 Doctor Unassigned, [place] [facility] AUTHORIZATION FOR RELEASE OF PHI 2022-07-03 05:01:00 Doctor Unassigned, [place] [facility] Encounters Start Date/Time End Date/Time Encounter Type Admission Type Attending [facility] Care Facility Care Department Encounter ID Source 2023-11-24 00:00:00 2023-11-26 13:52:08 Refill Thai Mendieta [facility] 1.2.840.114 350.1.13.10 4.2.7.2.686 [id number] [facility] 2023-11-25 00:00:00 2023-11-25 16:38:43 [facility] 1.2.840.114 350.1.13.10 4.2.7.2.686 [id number] [facility] 2023-06-12 00:00:00 2023-06-12 00:00:00 [facility]phone [facility] 1.2.840.114 350.1.13.10 4.2.7.2.686 [id number] [facility] 2023-06-11 00:00:00 2023-06-11 00:00:00 [facility]phone [facility] 1.2.840.114 350.1.13.10 4.2.7.2.686 [id number] [facility] 2023-06-03 15:20:00 2023-06-03 15:36:38 Office [facility] 1.2.840.114 350.1.13.10 4.2.7.2.686 [id number] [facility] 2023-06-03 15:20:00 2023-06-03 15:36:38 [id number] 2023-06-03 00:00:00 2023-06-03 00:00:00 Telephone Thai Mendieta [facility] 1.2.840.114 350.1.13.10 4.2.7.2.686 [id number] [facility] 2023-02-03 00:00:00 2023-02-03 00:00[facility] 1.2.840.114 350.1.13.10 4.2.7.2.686 [id number] [facility] 2023-01-22 00:00:00 2023-01-22 [facility]00[facility] 1.[facility].114 350.1.13.10 4.2.7.2.686 [id number] [facility] 2022-11-07 15:20:00 2022-11-07 15:26:39 Office Visit Thai Mendieta [facility] 1.2.840.114 350.1.13.10 4.2.7.2.686 [id number] [facility] 2022-11-07 15:20:00 2022-11-07 15:26:39 Outpatient R THAI MENDIETA [facility] [id number] [facility] 2022-09-11 00:00:00 2022-09-11 00:00:00 Telephone Angela Mendietaroseann [facility] 1.2.840.114 350.1.13.10 4.2.7.2.686 [id number] [facility] 2022-09-11 00:00:00 2022-09-11 00:00:00 Telephone Camilo Bello [facility] 1.2.840.114 350.1.13.10 4.2.7.2.686 [id number] [facility] 2022-09-06 15:43:40 2022-09-06 23:59:00 Outpatient R CAMILO BELLO [facility] [id number] [facility] 2022-08-06 15:40:00 2022-08-06 16:23:23 Outpatient R CAMILO BELLO [facility] [id number] [facility] 2022-08-06 15:40:00 2022-08-06 16:23:23 Office Visit Camilo Bello [facility] 1.2.840.114 350.1.13.10 4.2.7.2.686 [id number] [facility] 2022-08-06 14:00:00 2022-08-06 14:00:00 Outpatient R DIOWILLIANMONICA LUX VICKERS RIGOBERTOARJames [facility] [id number] [facility] 2022-08-06 00:00:00 2022-08-06 00:00:00 Orders Only Doctor Unassigned, [place] [facility] 1..840.114 350.1.13.10 4.2.7.2.686 [id number] [facility] 2022-07-18 12:00:00 2022-07-18 12:00:00 Outpatient R DIOWILLIANMONICA LUX VICKERS, AMYL [facility] [id number] [facility] 2022-07-09 00:00:00 2022-07-09 00:00:00 [facility]phone [facility] 1.2.840.114 350.1.13.10 4.2.7.2.686 [id number] [facility] 2022-07-03 14:00:00 2022-07-03 14:05:19 Office Visit Thai Mendieta [facility] 1.2.840.114 350.1.13.10 4.2.7.2.686 [id number] [facility] 2022-07-03 14:00:00 2022-07-03 14:05:19 Outpatient R THAI MENDIETA [facility] [id number] [facility] 2022-07-03 00:00:00 2022-07-03 00:00:00 Orders Only Doctor Unassigned, [place] [facility] 1.2.840.114 350.1.13.10 4.2.7.2.686 [id number] [facility]
[2024-02-16 13:26] LABS: Absolute Basophils 0.1 K/uL (0-0.5); Absolute Eosinophils 0.1 K/uL (0-0.5); Absolute Lymphocytes (CBC) 1.7 K/uL (0.7-4.9); Absolute Monocytes 0.6 K/uL (0.1-1.3); Absolute Neutrophil 7.8 K/uL (1.8-8.0); Basophils % 0.6 % (0-1.3); Eosinophils % 1.2 % (0-4.4); Hematocrit 46.2 % (36.0-45.0); Hemoglobin 15.6 g/dL (12.0-15.0); Lymphocytes % 16.9 % (15.3-44.8); MCH 30.2 pg (27.0-35.0); MCHC 33.7 g/dL (32.0-36.0); MCV 89.6 fL (80-100); MPV 8.9 fL (7.6-11.3); Monocytes % 5.8 % (3.3-12.3); Neutrophils % 75.5 % (41.7-73.7); Platelets 334 thou/uL (152-406); RBC Red Blood Cell Count 5.16 M/uL (3.86-4.86); Red Cell Distribution Width 14.7 % (12.1-15.2)
[2024-02-16 13:34] LABS: PT Prothrombin Time 11.2 SECONDS (9.4-12.5); PTT, Activated Partial Thromb 34.5 SECONDS (24.3-36.9)
[2024-02-16 13:41] LABS: Albumin 3.9 g/dL (3.4-5.0); Anion Gap 6.2 mEq/L (5.0-15.0); Bilirubin Total 0.6 mg/dL (0.2-1.0); Globulin 4.1 g/dL (2.3-3.5); Potassium 4.2 mEq/L (3.5-5.1)
--- NOTE | 2024-02-16 15:37 | RAD REPORT ---
EXAMINATION: CT Abdomen Pelvis W Contrast CLINICAL INDICATION: Female, 63 years old. bloody stool;Abd pain TECHNIQUE: CT abdomen and pelvis was performed, after the administration of IV contrast, [facility] Axial, sagittal and coronal reconstructions were obtained. One or more of the following dose reduction techniques were used: Automated exposure control, adjustment of the mA and k V according to patient size, and iterative reconstruction. Unless otherwise specified, incidental findings do not require dedicated imaging follow-up. COMPARISON: 12/22/2021 FINDINGS: LOWER CHEST: The visualized lung bases are clear. Partially included lipoma extending towards the int ra-atrial septum, measuring 3.5 cm in greatest axial dimension is again seen, not fully characterized LIVER: Normal in size and contour. Diffuse parenchymal hypoattenuation suggesting steatosis No focal lesion. BILIARY SYSTEM: Dependent 1.4 cm calculus along the body of the gallbladder. No evidence of intra or extrahepatic biliary ductal dilation. SPLEEN: Normal size. No focal lesion. PANCREAS: No mass, ductal dilation, or najma-pancreatic fluid. ADRENALS: Normal; no mass. KIDNEYS: Normal size and contour. No hydronephrosis. URINARY BLADDER: Unremarkable. GASTROINTESTINAL TRACT: Segmental wall thickening and adjacent fat stranding centered at the splenic flexure. Mild distal colonic diverticulosis No evidence of free air, significant intra-abdominal free fluid, bowel obstruction or abscess. APPENDIX: Normal appendix. LYMPH NODES: No lymphadenopathy. MUSCULOSKELETAL: Multilevel disc bulges, including a disc extrusion with disc height loss at L2-3 No acute or suspicious osseous abnormality. ADDITIONAL FINDINGS: Mild fusiform aneurysmal dilation of the most distal abdominal aorta measuring 2 .4 cm. IMPRESSION: Segmental wall thickening and adjacent fat stranding centered at the splenic flexure the colon, sugge sting focal infectious or inflammatory colitis. Other incidental findings including mild distal colonic diverticulosis, mild fusiform aneurysmal dila tion of the distal abdominal aorta, and cholelithiasis, stable.
--- NOTE | 2024-02-16 16:03 | ER ---
Nurse's Notes [facility] Name: Elizabeth Collins Age: 63 yrs Sex: Female : 1960 Arrival Date: 02/16/2024 Time: 12:06 Bed 19 Private MD: Diagnosis: Left sided colitis with rectal bleeding Presentation: 02/15 13:37 Chief complaint: Maroon blood in stool since last night. Denies pain. Coronavirus hb screen: At this time, the client does not indicate any symptoms associated with coronavirus-19. Ebola Screen: No symptoms or risks identified at this time. Initial Sepsis Screen: Does the patient meet any 2 criteria? No. Patient's initial sepsis screen is negative. Does the patient have a suspected source of infection? No. Patient's initial sepsis screen is negative. Risk Assessment: Do you want to hurt yourself or someone else? Patient reports no desire to harm self or others. Onset of symptoms. 13:37 Method Of Arrival: Ambulatory hb 13:37 Acuity: BARBARA 3 hb Historical: - Allergies: 13:38 No Known Allergies; hb - PMHx: 13:38 diabetes mellitus; Hypercholesterolemia; Hypertensive disorder; Hypothyroidism; hb - PSHx: 13:38 tubal ligation; hb - Immunization history:: Adult Immunizations up to date. - Infectious Disease History:: Denies. - Family history:: not pertinent. - Social history:: Smoking status: Patient reports the use of cigarette tobacco products, smokes one pack cigarettes per day. - Hospitalizations: : No recent hospitalization is reported. Screenin:31 [facility] ED Fall Risk Assessment (Adult) History of falling in the last 3 months, jb4 including since admission No falls in past 3 months (0 pts) Confusion or Disorientation No (0 pts) Intoxicated or Sedated No (0 pts) Impaired Gait No (0 pts) Mobility Assist Device Used No (0 pt) Altered Elimination No (0 pt) Score/Fall Risk Level 0 - 2 = Low Risk Oriented to surroundings, Maintained a safe environment. Abuse screen: Denies threats or abuse. Nutritional screening: No deficits noted. Tuberculosis screening: No symptoms or risk factors identified. Assessment: 16:31 General: Appears in no apparent distress. comfortable, Behavior is calm, cooperative, jb4 appropriate for age. Pain: Denies pain. Neuro: Level of Consciousness is awake, alert, obeys commands, Oriented to person, place, time, situation. Cardiovascular: Patient's skin is warm and dry. Respiratory: Airway is patent is compromised Respiratory effort is even, unlabored, Respiratory pattern is regular, symmetrical. GI: Reports rectal bleeding. : No signs and/or symptoms were reported regarding the genitourinary system. Derm: Skin is intact, Skin is pink, warm \T\ dry. Musculoskeletal: Circulation, motion, and sensation intact. Range of motion: intact in all extremities. Vital Signs: 13:37 BP 128 / 73; Pulse 87; Resp 16; Temp 97.4; Pulse Ox 100% on R/A; Weight 86.18 kg; hb Height 5 ft. 4 in. ; Pain 0/10; 13:37 Body Mass Index 32.61 (86.18 kg, 162.56 cm) hb 13:37 Pain Scale: Adult hb ED Course: 12:10 Patient arrived in ED. im 12:16 Phillip Benoit MD is Attending Physician. rn 13:18 Lactate w/ 2H reflex if indic. Sent. bc6 13:18 Type And Screen Sent. bc6 13:18 Protime (+inr) Sent. bc6 13:19 Ptt, Activated Sent. bc6 13:19 CBC with Diff Sent. bc6 13:19 CMP Sent. bc6 13:19 Lipase Sent. bc6 13:19 Initial lab(s) drawn, by me, sent to lab. T\T\S collected, blood band applied to patient. bc6 Inserted saline lock: 20 gauge in right antecubital area, using aseptic technique. Blood collected. Flushed with 10 mL NS. 13:38 Triage completed. hb 13:38 Arm band placed on. hb 14:21 CT Abd/Pelvis - IV Contrast Only In Process Unspecified. EDMS 16:31 Patient has correct armband on for positive identification. Bed in low position. Call jb4 light in reach. Side rails up X 1. Provided Education on: discharge instructions.. 16:33 No provider procedures requiring assistance completed. IV discontinued, intact, jb4 bleeding controlled, No redness/swelling at site. Pressure dressing applied. Administered Medications: 16:30 Drug: metroNIDAZOLE PO 500 mg PO once Route: PO; jb4 16:34 Follow up: Response: Medication administered at discharge. jb4 16:31 Drug: Ciprofloxacin PO 500 mg PO once Route: PO; jb4 16:33 Follow up: Response: Medication administered at discharge. jb4 Medication: 16:31 VIS not applicable for this client. jb4 Outcome: 16:02 Discharge ordered by . rn 16:33 Discharged to home ambulatory, jb4 16:33 Condition: stable 16:33 Discharge instructions given to patient, Instructed on discharge instructions, follow up and referral plans. medication usage, Demonstrated understanding of instructions, follow-up care, medications, Prescriptions given X 2, 16:34 Patient left the ED. jb4 Signatures: Dispatcher [employer] EDMS Phillip Benoit MD MD rn Baxter, Heather, RN RN hb Bryson, James, RN RN jb4 [facility] Darcy [facility]
--- NOTE | 2024-02-16 16:03 | EDPHYS ---
Physician Documentation [facility] Name: Elizabeth Collins Age: 63 yrs Sex: Female : 1960 Arrival Date: 02/16/2024 Time: 12:06 Bed 19 Private MD: ED Physician Phillip Benoit HPI: 02/15 13:16 This 63 yrs old Female presents to ER via Unassigned with complaints of Bloody Stools. rn 13:16 The patient presents to the emergency department with rectal bleeding, a small amount, rn bright red blood with bowel movement, with multiple such episodes. Onset: The symptoms/episode began/occurred last night. Modifying factors: The symptoms are alleviated by nothing, the symptoms are aggravated by nothing. Severity of symptoms: At their worst the symptoms were mild in the emergency department the symptoms are unchanged. The patient has experienced a previous episode. Patient reports passing maroon blood in stool since last night, couple of episodes. Has had positive Cologuard test in the past. No melena. No blood thinners. Reports minor abdominal cramping with low-grade fever.. Historical: - Allergies: 13:38 No Known Allergies; hb - PMHx: 13:38 diabetes mellitus; Hypercholesterolemia; Hypertensive disorder; Hypothyroidism; hb - PSHx: 13:38 tubal ligation; hb - Immunization history:: Adult Immunizations up to date. - Infectious Disease History:: Denies. - Family history:: not pertinent. - Social history:: Smoking status: Patient reports the use of cigarette tobacco products, smokes one pack cigarettes per day. - Hospitalizations: : No recent hospitalization is reported. ROS: 13:16 Constitutional: Reports a temperature of 99 degrees at home Cardiovascular: Negative rn for chest pain, palpitations, and edema, Respiratory: Negative for shortness of breath, cough, wheezing, and pleuritic chest pain, Abdomen/GI: Positive for abdominal cramping and blood in stool Back: Negative for injury and pain, MS/Extremity: Negative for injury and deformity, Skin: Negative for injury, rash, and discoloration, Neuro: Negative for headache, weakness, numbness, tingling, and seizure, Exam: 13:16 Constitutional: This is a well developed, well nourished patient who is awake, alert, rn and in no acute distress. Eyes: Normal conjunctiva Cardiovascular: Regular rate and rhythm. No pulse deficits. Respiratory: No increased work of breathing, no retractions or nasal flaring. Abdomen/GI: Soft, no focal tenderness. No rebound or guarding MS/ Extremity: Pulses equal, no cyanosis. Neuro: Awake and alert, GCS 15 Vital Signs: 13:37 BP 128 / 73; Pulse 87; Resp 16; Temp 97.4; Pulse Ox 100% on R/A; Weight 86.18 kg; hb Height 5 ft. 4 in. ; Pain 0/10; 13:37 Body Mass Index 32.61 (86.18 kg, 162.56 cm) hb 13:37 Pain Scale: Adult hb MDM: 12:16 Medical Screening Exam initiated rn 16:01 Differential diagnosis: diverticulitis, Colitis. Data reviewed: vital signs, nurses rn notes, lab test result(s), radiologic studies, CT scan, and as a result, I will discharge patient. Counseling: I had a detailed discussion with the patient and/or guardian regarding the historical points, exam findings, and any diagnostic results supporting the discharge/admit diagnosis, lab results, radiology results, the need for outpatient follow up, to return to the emergency department if symptoms worsen or persist or if there are any questions or concerns that arise at home. Special discussion: I discussed with the patient/guardian in detail that at this point there is no indication for admission to the hospital. It is understood, however, that if the symptoms persist or worsen the patient needs to return immediately for re-evaluation. Based on the history and exam findings, there is no indication for further emergent testing or inpatient evaluation. I discussed with the patient/guardian the need to see the lithographic artist for further evaluation of the symptoms. I discussed with the patient/guardian the need to see the general surgeon for further evaluation of the symptoms. ED course: CT shows focal area of colitis, given low-grade temperature is consistent with her symptoms of constipation and bloody stool. Will discharge home with antibiotics and will follow-up with GI or general surgery in a few weeks once inflammation is down for colonoscopy.. 12 12:16 Order name: CBC with Diff; Complete Time: 15:03 rn 02/15 12:16 Order name: CMP; Complete Time: 15:03 rn 02/15 12:16 Order name: Lipase; Complete Time: 15:03 rn 02/15 12:16 Order name: Protime (+inr); Complete Time: 15:03 rn 02/15 12:16 Order name: Ptt, Activated; Complete Time: 15:03 rn 02/15 12:16 Order name: Type And Screen; Complete Time: 15:03 rn 02/15 12:16 Order name: Lactate w/ 2H reflex if indic.; Complete Time: 15:03 rn 02/15 12:16 Order name: CT Abd/Pelvis - IV Contrast Only; Complete Time: 15:53 rn 02/15 12:16 Order name: IV Saline Lock; Complete Time: 13:19 rn 02/15 12:16 Order name: Labs collected and sent; Complete Time: 13:19 rn Administered Medications: 16:30 Drug: metroNIDAZOLE PO 500 mg PO once Route: PO; jb4 16:34 Follow up: Response: Medication administered at discharge. jb4 16:31 Drug: Ciprofloxacin PO 500 mg PO once Route: PO; jb4 16:33 Follow up: Response: Medication administered at discharge. [email or web address] Disposition Summary: 02/16/24 16:02 Discharge Ordered Notes: Location: Home rn Problem: new rn Symptoms: have improved rn Condition: Stable rn Diagnosis - Left sided colitis with rectal bleeding rn Followup: rn - With: Private Physician - When: As needed - Reason: Recheck today's complaints, Re-evaluation by your physician Discharge Instructions: - Discharge Summary Sheet rn - Rectal Bleeding rn - Colitis rn Forms: - Medication Reconciliation Form rn - Antibiotic burner hand - Prescription Opioid Use rn - Patient Portal Instructions rn - Leadership Thank You Letter rn Prescriptions: - Flagyl 500 mg Oral Tablet - take 1 tablet ORAL route every 8 hours for 10 days; 30 tablet; Refills: 0, rn Product Selection Permitted - Cipro 500 mg Oral tablet - take 1 tablet ORAL route every 12 hours for 10 days; 20 tablet; Refills: 0, rn Product Selection Permitted Signatures: Dispatcher [employer] EDPhillip Yusuf MD MD rn Baxter, Heather, RN RN hb Bryson, James, RN RN jb4 Corrections: (The following items were deleted from the chart) 12:17 12:17 CBC+H.LAB.BRZ ordered. EDMS EDMS 12:17 12:17 COMPREHENSIVE METABOLIC PANEL+C.LAB.BRZ ordered. EDMS EDMS 12:17 12:17 LIPASE+C.LAB.BRZ ordered. EDMS EDMS 12:17 12:17 PROTIME (+INR)+COAG.LAB.BRZ ordered. EDMS EDMS 12:17 12:17 PTT, ACTIVATED+COAG.LAB.BRZ ordered. EDMS EDMS 12: 12:17 TYPE AND SCREEN+BB.LAB.BRZ ordered. EDMS EDMS 12: 12:17 Abdomen Pelvis W Con+CT.RAD.BRZ ordered. EDMS EDMS 12: 12:17 LACTATE+C.LAB.BRZ ordered. EDMS EDMS
[2024-02-16] MEDS ORDERED: CIPROFLOXACIN HCL 500 MG TAB ONE (16:20)
[2024-02-16] MEDS ORDERED: metroNIDAZOLE 500 MG TABLET ONE (16:20)
[2024-02-16 20:57] VITALS: BP 128/73; TEMP 97.4; O2SAT 100
== END 2024-02-16 16:34 | disposition home or self-care (01) ==
LOC: ER 12:06
DX: K51.511 Left sided colitis with rectal bleeding (principal)
CPT/HCPCS: 36415; 74177; 80053; 83605; 83690; 85025; 85610; 85730; 86850; 86900; 86901; 99284; Q9967

== ENCOUNTER 2024-05-10 06:44 | Emergency (ER) | payer OTHER, SELFPAY ==
--- OUTSIDE RECORDS SUMMARY | 2024-05-10 06:47 | XMS REPORT | Continuity of Care Document ---
Author Name Unknown Address [address] [facility] [address] [place] [address] [facility] thconnect Address [address] [facility] [address] [place] [address] Care Team Providers Care Pst Manager Name Role Phone KRIS VO Primary Care Physician THAI Oropeza Attending Clinician Unavailable Gayatri DAMON, Thai Attending Clinician [phone] MAXWELL FAUST Attending Clinician Unavailab MAXWELL Beckman Attending Clinician Unavailab Víctor DAMON, Thai Attending Clinician [phone] Camilo Dowd Attending Clinician [phone] CAMILO BELLO Attending Clinician Unavailable LUX VICKERS Attending Clinician Unavaila LUX Warren Attending Clinician Unavaila andrea Doctor Unassigned, [place] Attending Clinician U navailable CAMILO BELLO Admitting Clinician Unavailable Payers Payer Name Policy Type Policy Number Effective Date Expirati on Date Source Allergies, Adverse Reactions, Alerts Allergy Name Allergy Type Status Severity Reaction(s) Onset Date Inactive Date Treating Clinician Comments Source NO KNOWN ALLERGIE S Drug Class Active [facility] Social History Social Habit Start Date Stop Date Quantity Comments Source History of tobacco use Cigarette Smoker [facility] Gender identity [facility] Exposure to SARS-CoV-2 (event) 2022-07-27 00:00:00 2022-08-06 07:01:00 Not sure [facility] Tobacco use and exposure 2022-07-03 00:00:00 2022-07-03 00:00:00 Smokeless tobacco non-user [facility] History of Social function 2022-07-03 00:00:00 2022-07-03 00:00:00 [facility] Sex assigned at 1960 00:00:00 1960 00:00:00 [facility] Smoking Status Start Date Stop Date Source Smokes tobacco daily 2022-07-03 00:00:00 [facility] Medications Ordered Medication Name Filled Medication Name Start Date Stop Date Current Medication? Ordering Clinician Indication Dosage Frequency Signature (SIG) Comments Components Source carvediloL 6.25 mg tablet 04-12 00:00: 00 Yes [id number] 6.25mg Take 1 tablet by mouth in the morning and 1 tablet in the evening. Take with meals. [facility] amLODIPine 10 mg tablet 04-12 00:00: 00 Yes [id number] 10mg Take 1 tablet by mouth in the morning. [facility] carvediloL 6.25 mg tablet 2023-03 00:00: 00 04-12 00:00 :00 No [id number] 6.25mg Take 1 tablet by mouth in the morning and 1 tablet in the evening. Take with meals. [facility] amLODIPine 10 mg tablet 2023-03 00:00: 00 04-12 00:00 :00 No [id number] 10mg Take 1 tablet by mouth in the morning. [facility] valsartan 320 mg tablet 11-25 00:00: 00 Yes [id number] 320mg Take 1 tablet by mouth in the morning. [facility] amLODIPine 10 mg tablet 18 00:00: 00 03-01 00:00 :00 No [id number] 10mg Take 1 tablet by mouth in the morning. [facility] carvediloL 6.25 mg tablet 16 00:00: 00 03-01 00:00 :00 No [id number] 6.25mg Take 1 tablet by mouth in the morning and 1 tablet in the evening. Take with meals. [facility] triamterene -hydrochlor othiazide 37.5-25 mg per capsule 3-26 00:00: 00 06-12 00:00 :00 No [id number] 1{vickie arredondo} Take 1 capsule by mouth every morning. [facility] amLODIPine 10 mg tablet 2022-03 1-27 00:00: 00 11-25 00:00 :00 No [id number] 10mg Take 1 tablet by mouth in the morning. [facility] amLODIPine 10 mg tablet 2022-03 1-15 00:00: 00 Yes [id number] 10mg Take 1 tablet by mouth in the morning. [facility] valsartan 320 mg tablet 2022-03 00:00: 00 11-25 00:00 :00 No [id number] 320mg Take 1 tablet by mouth in the morning. [facility] carvediloL 6.25 mg tablet 2022-03 00:00: 00 11-23 00:00 :00 No [id number] 6.25mg Take 1 tablet by mouth in the morning and 1 tablet in the evening. Take with meals. [facility] carvediloL 6.25 mg tablet 11-07 00:00: 00 01-22 00:00 :00 No [id number] 6.25mg Take 1 tablet by mouth in the morning and 1 tablet in the evening. Take with meals. [facility] amLODIPine 10 mg tablet 8- 00:00: 00 01-22 00:00 :00 No [id number] 10mg Take 1 tablet by mouth in the morning. [facility] valsartan 320 mg tablet 8 00:00: 00 01-22 00:00 :00 No [id number] 320mg Take 1 tablet by mouth in the morning. [facility] carvediloL 6.25 mg tablet 7-05 00:00: 00 11-07 00:00 :00 No 6.25mg Take 1 tablet by mouth in the morning and 1 tablet in the evening. Take with meals. [facility] eszopiclone 3 mg tablet 30 15:45: 27 Yes at bedtime as needed (for sleep). [facility] valsartan 320 mg tablet 07-09 00:00: 00 11-07 00:00 :00 No [id number] 320mg Take 1 tablet by mouth in the morning. [facility] amLODIPine 10 mg tablet 07-09 00:00: 00 11-07 00:00 :00 No [id number] 10mg Take 1 tablet by mouth in the morning. [facility] eszopiclone 3 mg tablet 07-03 13:44: 54 Yes [facility] esomeprazol e 40 mg capsule 06-25 00:00: 00 Yes 40mg Take 1 capsule by mouth every morning. [facility] SERTraline 25 mg tablet 06-25 00:00: 00 Yes 25mg Take 1 tablet by mouth in the morning. [facility] amLODIPine 5 mg tablet 06-25 00:00: 00 07-09 00:00 :00 No 5mg Take 1 tablet by mouth in the morning. [facility] valsartan 160 mg tablet 18 00:00: 00 07-09 00:00 :00 No 160mg Take 1 tablet by mouth in the morning. [facility] aspirin 81 mg EC tablet 05-30 00:00: 00 Yes 81mg Take 1 tablet by mouth at bedtime. [facility] busPIRone 5 mg tablet 05-30 00:00: 00 Yes TAKE ONE (1) TO TWO (2) TABLET(S) BY MOUTH TWICE A DAY NEEDED. [facility] Vital Signs Vital Name Observation Time Observation Value Comments S ource Systolic blood pressure 2023-06-03 20:09:00 128 mm[Hg] [facility] Diastolic blood pressure 2023-06-03 20:09:00 67 mm[Hg] [facility] Heart rate 2023-06-03 20:09:00 82 /min [facility] Body temperature 2023-06-03 20:09:00 36.78 Cami [facility] Respiratory rate 2023-06-03 20:09:00 20 /min [facility] Body height 2023-06-03 20:09:00 162.6 cm [facility] Body weight 2023-06-03 20:09:00 92.216 kg [facility] BMI 2023-06-03 20:09:00 34.90 kg/m2 [facility] Oxygen saturation in Arterial blood by Pulse oximetry 2023-06-03 20:09:00 92 /min [facility] Systolic blood pressure 2022-11-07 20:09:00 134 mm[Hg] [facility] Diastolic blood pressure 2022-11-07 20:09:00 81 mm[Hg] [facility] Heart rate 2022-11-07 20:09:00 79 /min [facility] Body height 2022-11-07 20:09:00 162.6 cm [facility] Body weight 2022-11-07 20:09:00 92.534 kg [facility] BMI 2022-11-07 20:09:00 35.02 kg/m2 [facility] Oxygen saturation in Arterial blood by Pulse oximetry 2022-11-07 20:09:00 96 /min [facility] Heart rate 2022-08-06 20:50:00 84 /min [facility] Systolic blood pressure 2022-08-06 20:50:00 131 mm[Hg] her machine repeat at breast level [facility] Diastolic blood pressure 2022-08-06 20:50:00 72 mm[Hg] her machine repeat at breast level [facility] Respiratory rate 2022-08-06 20:45:00 19 /min [facility] Body height 2022-08-06 20:45:00 162.6 cm [facility] Body weight 2022-08-06 20:45:00 90.719 kg [facility] BMI 2022-08-06 20:45:00 34.33 kg/m2 [facility] Oxygen saturation in Arterial blood by Pulse oximetry 2022-08-06 20:45:00 95 /min [facility] Systolic blood pressure 2022-07-03 18:41:00 144 mm[Hg] [facility] Diastolic blood pressure 2022-07-03 18:41:00 77 mm[Hg] [facility] Heart rate 2022-07-03 18:41:00 83 /min [facility] Oxygen saturation in Arterial blood by Pulse oximetry 2022-07-03 18:41:00 92 /min [facility] Respiratory rate 2022-07-03 18:38:00 19 /min [facility] Body height 2022-07-03 18:38:00 162.6 cm [facility] Body weight 2022-07-03 18:38:00 88.95 kg [facility] BMI 2022-07-03 18:38:00 33.66 kg/m2 [facility] Procedures Procedure Date / Time Performed Performing Clinician Source CONSENT/REFUSAL FOR DIAGNOSIS AND TREATMENT 2022-08-06 20:34:30 Doctor Unassigned, [place] [facility] AUTHORIZATION FOR RELEASE OF PHI 2022-07-03 05:01:00 Doctor Unassigned, [place] [facility] Encounters Start Date/Time End Date/Time Encounter Type Admission Type Attending Clinicians Care Facility Care Department Encounter ID Source 2024-04-12 00:00:00 2024-04-12 16:04:37 Refill Thai Mendieta [facility] 1.2.840.114 350.1.13.10 4.2.7.2.686 [id number] [facility] 2024-03-01 00:00:00 2024-03-01 11:33:17 Telephone GayatriThai [facility] 1.2.840.114 350.1.13.10 4.2.7.2.686 [id number] [facility] 2023-11-24 00:00:00 2023-11-26 13:52:08 [facility] 1.2.840.114 350.1.13.10 4.2.7.2.686 [id number] [facility] 2023-11-25 00:00:00 2023-11-25 16:38:43 [facility] 1.2.840.114 350.1.13.10 4.2.7.2.686 [id number] [facility] 2023-06-12 00:00:00 2023-06-12 00:00:00 [facility] 1.2.840.114 350.1.13.10 4.2.7.2.686 [id number] [facility] 2023-06-11 00:00:00 2023-06-11 00:00:00 [facility] 1.2.840.114 350.1.13.10 4.2.7.2.686 [id number] [facility] 2023-06-03 15:20:00 2023-06-03 15:36:38 [facility] [id number] [facility] 2023-06-03 15:20:00 2023-06-03 15:36:38 [facility] 1.2.840.114 350.1.13.10 4.2.7.2.686 [id number] [facility] 2023-06-03 00:00:00 2023-06-03 00:00:00 [facility] 1.2.840.114 350.1.13.10 4.2.7.2.686 [id number] [facility] 2023-02-03 00:00:00 2023-02-03 00:00:00 [facility] 1.2.840.114 350.1.13.10 4.2.7.2.686 [id number] [facility] 2023-01-22 00:00:00 2023-01-22 00:00:00 [facility] 1.2.840.114 350.1.13.10 4.2.7.2.686 [id number] [facility] 2022-11-07 15:20:00 2022-11-07 15:26:39 [facility] 1.2.840.114 350.1.13.10 4.2.7.2.686 [id number] [facility] 2022-11-07 15:20:00 2022-11-07 15:26:39 [facility] [id number] [facility] 2022-09-11 00:00:00 2022-09-11 00:00:00 [facility] 1.2.840.114 350.1.13.10 4.2.7.2.686 [id number] [facility] 2022-09-11 00:00:00 2022-09-11 00:00:00 Telephone Camilo Bello [facility] 1.2.840.114 350.1.13.10 4.2.7.2.686 [id number] [facility] 2022-09-06 15:43:40 2022-09-06 23:59:00 Outpatient R CAMILO BELLO [facility] [id number] [facility] 2022-08-06 15:40:00 2022-08-06 16:23:23 Outpatient R KEENA CAMILO [facility] [id number] [facility] 2022-08-06 15:40:00 2022-08-06 16:23:23 Office Visit Camilo Bello [facility] 1.2.840.114 350.1.13.10 4.2.7.2.686 [id number] [facility] 2022-08-06 14:00:00 2022-08-06 14:00:00 [facility] [id number] [facility] 2022-08-06 00:00:00 2022-08-06 00:00:00 Orders Only Doctor Unassigned, [place] [facility] 1..840.114 350.1.13.10 4.2.7.2.686 [id number] [facility] 2022-07-18 12:00:00 2022-07-18 12:00:00 Outpatient R LUX VICKERS STRAAKJames [facility] [id number] [facility] 2022-07-09 00:00:00 2022-07-09 00:00:00 [facility] 1..840.114 350.1.13.10 4.2.7.2.686 [id number] [facility] 2022-07-03 14:00:00 2022-07-03 14:05:19 [facility] 1.2.840.114 350.1.13.10 4.2.7.2.686 [id number] [facility] 2022-07-03 14:00:00 2022-07-03 14:05:19 Outpatient R THAI MENDIETA [facility] [id number] [facility] 2022-07-03 00:00:00 2022-07-03 00:00:00 Orders Only Doctor Unassigned, [place] [facility] 1.2.840.114 350.1.13.10 4.2.7.2.686 [id number] [facility] Notes Date/Time Note Provider Source 2024-04-12 13:50:56 Images from the original note were not included. KEVIN 06/03/2023 NOV not scheduled Cardiovascular: Beta Blockers Ntqdoz4004/12/2024 11:34 AM Protocol Details Valid encounter within last 12 months Heart rate within normal limits and completed in the last 12 months Calcium Channel Blockers Zokzoj3404/12/2024 11:34 AM Protocol Details Valid encounter within last 12 months Will send 30 days 0 refills. Patient is in need of follow up. Routing to PSS for scheduling. [facility] Belinda Melara RN [facility] 2024-03-01 11:32:49 1 mth supply sent to [facility] as requested by pt with reminder to schedule f/u and complete labs [facility] 2024-03-01 10:42:35 Elizabeth Collins is a 64 year old female Pt calling, Pt lost insurance and hasn't been able to get the bloodwork, new insurance starts 03/10 and will run out of medication before then. Pt is running low, has about a week left. Is getting financial assistance but hasn't been able to learn how much bloodwork will cost. Spent about an hr getting transferred around and was unable to get an answer. Will have an HMO after 03/10. Please advise cost of labs to [facility]. Pt request one month worth of script to be able to get to a lab appt - carvediloL 6.25 mg tablet - amLODIPine 10 mg tablet Please advise [facility] [place], [place] - [facility] AT [address] [facility] [id number] [employer] Jael Becerra [facility] 2023-11-26 13:46:38 Images from the original note were not included. Patient wants medications filled I can refill amlodipine but the Valsartan the patient needs labs. Plan ? Please read the message below. Patient recently lost her job and insurance. She is actively looking for work/insurance. Provided indigent care assistance phone numbers and registration to check on cost of labs. Lab orders placed KEVIN 06/03/23 Labs 12/22/2021 seen on care everywhere valsartan 320 mg tablet Sig: Take 1 tablet by mouth in the morning. Disp: 90 tablet Refills: 3 Start: 11/26/2023 Class: eRX Non-formulary For: Primary hypertension Last ordered: 10 months ago (01/22/2023) by Thai Mendieta MD Cardiovascular: Angiotensin Receptor Blockers Vlmioo6611/26/2023 11:27 AM Protocol Details K in normal range and within 360 days Cr in normal range and within 360 days Valid encounter within last 12 months amLODIPine 10 mg tablet Sig: Take 1 tablet by mouth in the morning. Disp: 90 tablet Refills: 0 Start: 11/26/2023 Class: eRX Non-formulary For: Primary hypertension Last ordered: 9 months ago (02/03/2023) by Thai Mendieta MD Calcium Channel Blockers Uyzjpg7611/26/2023 11:27 AM Protocol Details Valid encounter within last 12 months To be filled at: [facility] [address] [facility] [address] Swati Green MA [facility] 2023-11-26 11:26:31 Please refill amLODIPine 10 mg tablet and valsartan 320 mg tablet. [facility] [address] AT [address] Rkis Will Ramana [facility] 2023-11-25 16:38:31 Casebook started. Pt notified. T [facility] 2023-11-25 15:49:54 Pt states she called [facility] financial assistance for labwork due to her no longer having insurance from job loss. Pt was told to have physician place a casebook request for this. Reached out to financial department for clarification. This process can be used for: if a patient is uninsured, resides in [place] and a legal resident, we can screen for Casebook for any specialty care visits, testing, or surgery. This can be done by physician or medical staff. Will work on this for patient. T [facility] 2023-11-25 13:48:52 Lvm for pt to call back with what procedure she requires a casebook for. T [facility] 2023-11-25 13:00:08 Never done this. She does not need any cardiac procedures. Casebook for what? T [facility] 2023-11-25 11:34:[address] Mendieta T [facility] 2023-11-25 11:20:32 Patient states she is trying to get assistant financial accountant through [facility] and the assistant financial accountant counselor told her the cardiology office needs to send over a casebook request in order for her to be approved. Please advise. Kris Will Ramana [facility] 2023-11-24 11:04:54 Carvedilol refill requested, 90 days provided for continuity of care, patient recently lost her job and insurance. She is actively looking for work/insurance. Provided indigent care assistance phone numbers and registration to check on cost of labs. Lab orders placed KEVIN 06/03/23 Labs 12/22/2021 seen on care everywhere Lili Isabel RN [facility] 2023-06-13 11:17:31 Pt pleased. Will call back PRN. MAR updated. [facility] 2023-06-13 10:22:21 Stop Dyazide. Continue the rest. Call if blood pressure is above 140/90. [facility] 2023-06-13 09:43:35 Routed to for chart review. [facility] 2023-06-12 15:28:14 Copied from [facility] #[id number]. Topic: Clinical - Medical Advice >> Jun 12, 2023 3:27 PM Patient Technician Inventory Specialist wrote: Patmient calling needing to speak with a nurse regarding stopping triamterene-hydrochlorothiazi de 37.5-25 mg per capsule and getting back on the medication she was taking prior. Please advise Sandi Landers [facility] 2023-06-12 14:14:16 Dr. Mendieta Cleared patient for surgery, Faxed over to Dr. Chambers. Scanned confirmation into chart . Thank you Swati Green MA [facility] 2023-06-12 10:28:58 Received cardiac clearance form from Dr. Chambers, placed in Dr. Mendieta's folder for Review. Thank you KEVIN: 06/03/2023 Last EKG :07/03/2022 Last Echo : 09/06/2022 Swati Green MA [facility] 2023-06-11 14:51:53 Copied from [facility] #[id number]. Topic: Clinical - Medical Advice >> Jun 11, 2023 2:51 PM Patient Technician Inventory Specialist wrote: Elizabeth Collins is a 63 year old female Pt was calling about medication triamterene-hydrochlorothiazi de 37.5-25 mg per capsule she said she took it friday and had a bad reaction to it. She said it gave her a bad cough and congestion. She has gone back to what she was using before. She wants to know if that was okay to do so. Please advise Rahel Barron [facility] 2023-06-03 15:38:02 Patient dropped off medical records. Placed in providers basket. Pati Lizarraga [facility]
[2024-05-10] MEDS ORDERED: ONDANSETRON 4 MG/2 ML VIAL ONE (07:23)
[2024-05-10] MEDS ORDERED: FAMOTIDINE 20 MG/2 ML VIAL IV ONE (07:24)
[2024-05-10] MEDS ORDERED: NA CHLORIDE 0.9% 1,000 ML ONE (07:24)
[2024-05-10 07:40] LABS: Absolute Basophils 0.1 K/uL (0-0.5); Absolute Eosinophils 0.1 K/uL (0-0.5); Absolute Lymphocytes (CBC) 1.2 K/uL (0.7-4.9); Absolute Monocytes 0.5 K/uL (0.1-1.3); Absolute Neutrophil 3.4 K/uL (1.8-8.0); Basophils % 1.5 % (0-1.3); Eosinophils % 1.3 % (0-4.4); Hematocrit 45.6 % (36.0-45.0); Hemoglobin 15.4 g/dL (12.0-15.0); Lymphocytes % 22.8 % (15.3-44.8); MCH 29.7 pg (27.0-35.0); MCHC 33.7 g/dL (32.0-36.0); MCV 88.1 fL (80-100); MPV 7.9 fL (7.6-11.3); Monocytes % 10.3 % (3.3-12.3); Neutrophils % 64.1 % (41.7-73.7); Nucleated Red Blood Cells % 0.4 % (0-0); Platelets 345 thou/uL (152-406); RBC Red Blood Cell Count 5.17 M/uL (3.86-4.86); Red Cell Distribution Width 14.1 % (12.1-15.2)
[2024-05-10 07:58] LABS: Albumin 3.2 g/dL (3.4-5.0); Albumin/Globulin Ratio 0.8 (1.1-1.8); Anion Gap 8.9 mEq/L (5.0-15.0); Bilirubin Total 0.4 mg/dL (0.2-1.0); Globulin 4.1 g/dL (2.3-3.5); Potassium 3.9 mEq/L (3.5-5.1); Protein, Total 7.3 g/dL (6.4-8.2)
--- NOTE | 2024-05-10 08:35 | EDPHYS ---
Physician Documentation [facility] Name: Elizabeth Collins Age: 64 yrs Sex: Female : 1960 Arrival Date: 05/10/2024 Time: 06:44 Bed 5 Private MD: ED Physician Hugh Brewer HPI: 05/10 07:30 This 64 yrs old Female presents to ER via Ambulatory with complaints of ms3 Nausea/Vomiting/Diarrhea. 07:30 64-year-old female with past medical history of diabetes, hyperlipidemia, hypertension, ms3 hypothyroidism presents to the emergency department for diarrhea that began on . Patient states she saw her primary care physician who placed her on Augmentin for diarrhea. Patient notes she does have a history of colitis in the past with similar symptoms. Patient endorses nausea. Patient denies pain.. Historical: - Allergies: 06:57 No Known Allergies; vc1 - Home Meds: 06:57 amlodipine oral [Active]; valsartan oral [Active]; carvedilol oral [Active]; amlodipine vc1 oral [Active]; - PMHx: 06:57 diabetes mellitus; Hypercholesterolemia; Hypertensive disorder; Hypothyroidism; vc1 - PSHx: 06:57 tubal ligation; vc1 - Immunization history:: Client reports receiving the 2nd dose of the Covid vaccine, Flu vaccine is not up to date. - Infectious Disease History:: Denies. - Social history:: Smoking status: Patient reports the use of cigarette tobacco products, smokes one pack cigarettes per day. ROS: 07:30 Constitutional: Negative for fever, and chills. Cardiovascular: Negative for chest ms3 pain, and palpitations. Respiratory: Negative for shortness of breath, cough, wheezing, and pleuritic chest pain, MS/Extremity: Negative for injury and deformity, Skin: Negative for injury, rash, and discoloration, 07:30 Abdomen/GI: Positive for diarrhea, Negative for abdominal pain, nausea and vomiting, Exam: 07:30 Constitutional: This is a well developed, well nourished patient who is awake, alert, ms3 and in no acute distress. Cardiovascular: Regular rate and rhythm with a normal S1 and S2. No gallops, murmurs, or rubs. Normal PMI, no JVD. No pulse deficits. Respiratory: Lungs have equal breath sounds bilaterally, clear to auscultation and percussion. No rales, rhonchi or wheezes noted. No increased work of breathing, no retractions or nasal flaring. Abdomen/GI: Soft, non-tender, with normal bowel sounds. No distension or tympany. No guarding or rebound. No evidence of tenderness throughout. Skin: Warm, dry with normal turgor. Normal color with no rashes, no lesions, and no evidence of cellulitis. MS/ Extremity: Pulses equal, no cyanosis. Neurovascular intact. Full, normal range of motion. Vital Signs: 06:56 BP 159 / 90; Pulse 87; Resp 15; Temp 97; Pulse Ox 92% ; Weight 86.18 kg; Height 5 ft. 4 vc1 in. ; 07:31 BP 146 / 79; Pulse 80; Resp 15; Pulse Ox 94% on R/A; Pain 0/10; ss 08:32 BP 153 / 77; Pulse 67; Resp 18; Pulse Ox 93% on R/A; ld1 06:56 Body Mass Index 32.61 (86.18 kg, 162.56 cm) vc1 07:31 Pain Scale: Adult ss MDM: 07:12 Medical Screening Exam initiated ms3 07:30 Differential diagnosis: Nonspecific abd pain, gastritis, pancreatitis, appendicitis, ms3 diverticulitis, viral gastroenteritis, gastroenteritis. 10:08 Data reviewed: vital signs, nurses notes, lab test result(s), and as a result, I will ms3 discharge patient. I considered the following discharge prescriptions or medication management in the emergency department Medications were administered in the Emergency Department. See MAR. Counseling: I had a detailed discussion with the patient and/or guardian regarding the historical points, exam findings, and any diagnostic results supporting the discharge/admit diagnosis, lab results, the need for outpatient follow up, to return to the emergency department if symptoms worsen or persist or if there are any questions or concerns that arise at home. Special discussion: I discussed with the patient/guardian in detail that at this point there is no indication for admission to the hospital. It is understood, however, that if the symptoms persist or worsen the patient needs to return immediately for re-evaluation. ED course: Discussed labs with patient. Patient currently on Augmentin. Patient instructed to continue current duration of Augmentin. Patient understands and agrees with plan. All questions were answered. Return precautions discussed include worsening symptoms, or any other concerns. On reevaluation patient is alert and oriented x 4, no apparent distress, nontoxic-appearing, speaking full sentences.. 05/10 07:12 Order name: CBC with Diff; Complete Time: 08:27 ms3 05/10 07:12 Order name: CMP; Complete Time: 08:27 ms3 05/10 07:12 Order name: IV Saline Lock; Complete Time: 07:20 ms3 05/10 07:12 Order name: Labs collected and sent; Complete Time: 07:20 ms3 Administered Medications: 07:27 Drug: NS 0.9% IV 1000 ml IV at 1 bolus Per protocol; to be given as a bolus over 60 ss minutes Route: IV; Rate: 1 bolus; Site: right antecubital; 08:47 Follow up: Response: No adverse reaction; IV Status: Completed infusion; IV Intake: ld1 1000ml 07:28 Drug: Ondansetron IVP 4 mg IVP once; over 2 minutes Route: IVP; Site: right antecubital;ss 08:47 Follow up: Response: No adverse reaction ld1 07:30 Drug: Famotidine IVP 20 mg IVP once; dilute with 10 mL 0.9% NaCl; give over 2 minutes ss Route: IVP; Site: right antecubital; 08:47 Follow up: Response: No adverse reaction ld1 Disposition Summary: 05/10/24 08:35 Discharge Ordered Notes: Location: Home ms3 Condition: Stable ms3 Diagnosis - Diarrhea, unspecified ms3 Followup: ms3 - With: Private Physician - When: 2 - 3 days - Reason: Recheck today's complaints Discharge Instructions: - Discharge Summary Sheet ms3 - Food Choices to Help Relieve Diarrhea, Adult ms3 - Diarrhea, Adult ms3 Forms: - Medication Reconciliation Form ms3 - Antibiotic Education ms3 - Prescription Opioid Use ms3 - Patient Portal Instructions ms3 - Leadership Thank You Letter ms3 Signatures: Dispatcher [employer] Joceline Naik RN RN ss Hugh Brewer DO DO ms3 Deonna Grossman RN RN vc1 Lilian Brewer RN ld1
--- NOTE | 2024-05-10 08:35 | ER ---
Nurse's Notes [facility] Name: Elizabeth Collins Age: 64 yrs Sex: Female : 1960 Arrival Date: 05/10/2024 Time: 06:44 Bed 5 Private MD: Diagnosis: Diarrhea, unspecified Presentation: 05/10 06:56 Chief complaint: Patient states: liquid stool and nausea started augmentin friday. vc1 Coronavirus screen: Client denies travel out of the [place] in the last 14 days. At this time, the client does not indicate any symptoms associated with coronavirus-19. Ebola Screen: Patient negative for fever greater than or equal to 101.5 degrees Fahrenheit, and additional compatible Ebola Virus Disease symptoms Patient denies exposure to infectious person. Patient denies travel to an Ebola-affected area in the 21 days before illness onset. No symptoms or risks identified at this time. Initial Sepsis Screen: Does the patient meet any 2 criteria? No. Patient's initial sepsis screen is negative. Does the patient have a suspected source of infection? No. Patient's initial sepsis screen is negative. Risk Assessment: Do you want to hurt yourself or someone else? Patient reports no desire to harm self or others. Note just getting over the flu. Onset of symptoms is unknown. 06:56 Method Of Arrival: Ambulatory vc1 06:56 Acuity: BARBARA 3 vc1 Historical: - Allergies: 06:57 No Known Allergies; vc1 - Home Meds: 06:57 amlodipine oral [Active]; valsartan oral [Active]; carvedilol oral [Active]; amlodipine vc1 oral [Active]; - PMHx: 06:57 diabetes mellitus; Hypercholesterolemia; Hypertensive disorder; Hypothyroidism; vc1 - PSHx: 06:57 tubal ligation; vc1 - Immunization history:: Client reports receiving the 2nd dose of the Covid vaccine, Flu vaccine is not up to date. - Infectious Disease History:: Denies. - Social history:: Smoking status: Patient reports the use of cigarette tobacco products, smokes one pack cigarettes per day. Screenin:31 [facility] ED Fall Risk Assessment (Adult) History of falling in the last 3 months, ss including since admission No falls in past 3 months (0 pts) Confusion or Disorientation No (0 pts) Intoxicated or Sedated No (0 pts) Impaired Gait No (0 pts) Mobility Assist Device Used No (0 pt) Altered Elimination No (0 pt) Score/Fall Risk Level 0 - 2 = Low Risk Oriented to surroundings, Maintained a safe environment, Educated pt \T\ family on fall prevention, incl call for assistance when getting out of bed. Abuse screen: Denies threats or abuse. Denies injuries from another. Nutritional screening: No deficits noted. Tuberculosis screening: Never had TB. Assessment: 07:31 General: Appears uncomfortable, Behavior is calm, cooperative, quiet. Pain: Denies ss pain. Neuro: Level of Consciousness is awake, alert, obeys commands, Oriented to person, place, time, situation, Temper [employer] Operator are equal bilaterally. Respiratory: Airway is patent Respiratory effort is even, unlabored, Respiratory pattern is regular, symmetrical. GI: Reports diarrhea, nausea, since . GI: Abdomen is non-distended, Last BM was May 10, 2024. : Denies burning with urination. EENT: Oral mucosa is moist. Throat is clear. Derm: Skin is intact, is healthy with good turgor, Skin is dry, Skin is pink, warm \T\ dry. normal. 08:32 Reassessment: Pt ambulating to at this time. ld1 Vital Signs: 06:56 BP 159 / 90; Pulse 87; Resp 15; Temp 97; Pulse Ox 92% ; Weight 86.18 kg; Height 5 ft. 4 vc1 in. ; 07:31 BP 146 / 79; Pulse 80; Resp 15; Pulse Ox 94% on R/A; Pain 0/10; ss 08:32 BP 153 / 77; Pulse 67; Resp 18; Pulse Ox 93% on R/A; ld1 06:56 Body Mass Index 32.61 (86.18 kg, 162.56 cm) vc1 07:31 Pain Scale: Adult ss ED Course: 06:48 Patient arrived in ED. gm2 06:57 Triage completed. vc1 06:59 Arm band placed on left wrist. vc1 07:07 Hugh Brewer DO is Attending Physician. ms3 07:14 Joceline Choi, RN is Primary Nurse. ss 07:20 Inserted saline lock: 20 gauge in right antecubital area, using aseptic technique. ss Blood collected. Flushed with 10 mL NS. 07:30 CBC with Diff Sent. ss 07:30 CMP Sent. ss 07:31 Patient has correct armband on for positive identification. Bed in low position. Call ss light in reach. Side rails up X 1. Pulse ox on. NIBP on. Warm blanket given. 08:47 No provider procedures requiring assistance completed. IV discontinued, intact, ld1 bleeding controlled, No redness/swelling at site. Administered Medications: 07:27 Drug: NS 0.9% IV 1000 ml IV at 1 bolus Per protocol; to be given as a bolus over 60 ss minutes Route: IV; Rate: 1 bolus; Site: right antecubital; 08:47 Follow up: Response: No adverse reaction; IV Status: Completed infusion; IV Intake: ld1 1000ml 07:28 Drug: Ondansetron IVP 4 mg IVP once; over 2 minutes Route: IVP; Site: right antecubital;ss 08:47 Follow up: Response: No adverse reaction ld1 07:30 Drug: Famotidine IVP 20 mg IVP once; dilute with 10 mL 0.9% NaCl; give over 2 minutes ss Route: IVP; Site: right antecubital; 08:47 Follow up: Response: No adverse reaction ld1 Medication: 07:31 VIS not applicable for this client. ss Intake: 08:47 IV: 1000ml; Total: 1000ml. ld1 Outcome: 08:35 Discharge ordered by . ms3 08:48 Discharged to home ambulatory, ld1 08:48 Condition: stable 08:48 Discharge instructions given to patient, Instructed on discharge instructions, Demonstrated understanding of instructions, follow-up care, 08:48 Patient left the ED. ld1 Signatures: Joceline Choi RN RN Hugh Brewer, DO ms3 Lilian Brewer RN RN ld1 Deonna Grossman RN RN vc1 Stephanie Earl gm2
[2024-05-10 08:54] VITALS: TEMP 97
[2024-05-10 08:56] VITALS: BP 153/77; O2SAT 93
== END 2024-05-10 08:48 | disposition home or self-care (01) ==
LOC: ER 06:44
DX: R19.7 Diarrhea, unspecified (principal); F17.210 Nicotine dependence, cigarettes, uncomplicated
CPT/HCPCS: 96361; 85025; 36415; 80053; 96375; 96374; 99284; J2405; J7030